=== PATIENT | male | born 1965 | race Caucasian/White ===

== ENCOUNTER 2017-04-01 11:00 | Inpatient (IN) | payer OTHER ==
--- NOTE | 2017-04-01 11:17 | PDOC ---
History of Present Illness - General Chief Complaint: Loss of Appetite Stated Complaint: APPETITE CHANGES, CONSTIPATION Time Seen by Provider: 04/01/17 11:04 - History of Present Illness Initial Comments: 04/01/17 11:17 51-year-old male with a history of mental retardation and no other medical history presents with 4 days of decreased appetite, abdominal distention. History is limited as patient is nonverbal. Patient's mom reports that she is concerned he's constipated as he has made frequent trips to the bathroom but has not had too many bowel movements. He denied pain to her. She has not noted any fevers, chills, nausea, vomiting. She does report he has had intermittent pickups for the last 4 days. She reports he has been less active and spending most of his day in bed which is unusual for him. She has not noted any urinary symptoms, rashes. PSH: Open cholecystectomy Social: No EtOH, tobacco, or illicit drugs Past History - Past Medical History Allergies/Adverse Reactions: Allergies Allergy/AdvReac Type Severity Reaction Status Date / Time No Known Allergies Allergy Verified 04/01/17 11:04 Home Medications: Ambulatory Orders Cholecalciferol (Vitamin D3) [Vitamin D3 -] 2,000 unit PO DAILY 04/01/17 Mv-Mn/FA/Coq10/Lycopene/Lutein [Theragran-M Premier 50+ Caplet] 1 each PO DAILY 04/01/17 Cardiac Disorders: Yes (MVP) Other medical history: FRAGILE X SYNDROME, ASTIGMATISM, SEBORRHEA, SKIN PICKING - Surgical History Cholecystectomy: Yes - Suicide/Smoking/Psychosocial Hx Smoking Status: No Smoking History: Never smoked Have you smoked in the past 12 months: No Number of Cigarettes Smoked Daily: 0 Information on smoking cessation initiated: No Hx Alcohol Use: No Drug/Substance Use Hx: No Review of Systems - Review of Systems Comments:: 04/01/17 11:20 GENERAL/CONSTITUTIONAL: No fever or chills. No weakness. decreased appetite HEAD, EYES, EARS, NOSE AND THROAT: No change in vision. No ear pain or discharge. No sore throat. GASTROINTESTINAL: No nausea, vomiting, +abd distention GENITOURINARY: No dysuria, frequency, or change in urination. CARDIOVASCULAR: No chest pain or shortness of breath. RESPIRATORY: No cough, wheezing, or hemoptysis. MUSCULOSKELETAL: No joint or muscle swelling or pain. No neck or back pain. SKIN: No rash NEUROLOGIC: No headache, vertigo, loss of consciousness, or change in strength/ sensation. ENDOCRINE: No increased thirst. No abnormal weight change. HEMATOLOGIC/LYMPHATIC: No anemia, easy bleeding, or history of blood clots. ALLERGIC/IMMUNOLOGIC: No hives or skin allergy. *Physical Exam - Vital Signs Last Vital Signs Temp Pulse Resp BP Pulse Ox 97.3 F L 93 H 18 145/96 97 04/01/17 11:00 04/01/17 11:00 04/01/17 11:00 04/01/17 11:00 04/01/17 11:00 - Physical Exam Comments: 04/01/17 11:20 GENERAL: Awake, alert, non verbal, in no acute distress. Malodorous. HEAD: No signs of trauma EYES: PERRLA, EOMI, sclera anicteric, conjunctiva clear ENT: Auricles normal inspection, hearing grossly normal, nares patent, oropharynx clear without exudates. Moist mucosa NECK: Normal ROM, supple, no lymphadenopathy, JVD, or masses LUNGS: Breath sounds equal, clear to auscultation bilaterally. No wheezes, and no crackles HEART: Regular rate and rhythm, normal S1 and S2, no murmurs, rubs or gallops ABDOMEN: +distention, grimaces when palpating periumbilical and lower abdomen, + non pulsatile mass palpated in periumbilical area. No rebound or guarding. No CVAT EXTREMITIES: Normal range of motion, no edema. No clubbing or cyanosis. No cords, erythema, or tenderness NEUROLOGICAL: Follows simple commands, cranial nerves intact, negative pronator drift, 5/5 strength in all 4 extremities, normal sensation to light touch in all 4 extremities, normal gait, normal reflexes and tone SKIN: Warm, Dry, normal turgor, no rashes or lesions noted. Heart Score/ECG Review #1 04/01/17 14:22 Twelve-lead EKG was performed and reviewed by me. Sinus rhythm, rate 82, normal axis. +PVCs. No ST elevations or T-wave inversions. ED Treatment Course - LABORATORY CBC & Chemistry Diagram: 04/01/17 10:30 04/01/17 11:00 - RADIOLOGY Radiology Studies Ordered: Category Date Time Status ABDOMEN & PELVIS CT WITH CONTR [CT] Stat CT Scan 04/01/17 11:15 Ordered Medical Decision Making - Medical Decision Making 04/01/17 11:22 51-year-old male with a history of open cholecystectomy presents with 4 days of abdominal distention decreased by mouth appetite and possible constipation. Other than mild hypertension vitals are within normal limits. Exam remarkable for grimacing when palpating the periumbilical area, abdominal distention and large nonpulsatile mass in the periumbilical area. Differential includes but is not limited to obstruction versus ileus versus constipation. Since history is limited, will also check troponin/EKG for ischemia, and UA for other infections causes -labs -UA -AXR -CTAP -reassess *DC/Admit/Observation/Transfer Diagnosis at time of Disposition: Renal failure, Retention of urine, Diverticulitis of intestine - Discharge Dispostion Condition at time of disposition: Stable Admit: Yes - Attestations Physician Attestion: 04/01/17 14:23 I, Dr. Stefany Grajeda MD, attest that this document has been prepared under my direction and personally reviewed by me in its entirety. I further attest, that it accurately reflects all work, treatment, procedures and medical decision -making performed by me.
[2017-04-01 11:37] LABS: URINE APPEARANCE Clear; URINE BACTERIA FEW /hpf (NEGATIVE); URINE BILIRUBIN Negative (NEGATIVE); URINE BLOOD Trace-lysed (NEGATIVE); URINE COLOR YELLOW; URINE GLUCOSE (UA) Trace (NEGATIVE); URINE KETONE Negative (NEGATIVE); URINE LEUK ESTERASE Negative (NEGATIVE); URINE NITRITE Negative (NEGATIVE); URINE PROTEIN Negative (NEGATIVE); URINE RBC 0-3 /hpf (0-3); URINE UROBILINOGEN 0.2 (0.2-1.0); URINE WBC 0-3 /hpf (3-5)
[2017-04-01 11:41] LABS: BASOPHIL 3.8 % (0-2.0); EOSINOPHIL 0.1 % (0-4.5); MCH 30.7 pg (25.7-33.7); MCHC 33.8 g/dl (32.0-35.9); NEUTROPHILS 78.9 % (42.8-82.8); PLATELET COUNT 219 K/MM3 (134-434); RDW 14.3 % (11.9-15.9); WHITE BLOOD COUNT 12.5 K/mm3 (4.0-10.8)
[2017-04-01 11:58] LABS: ALBUMIN 3.8 g/dl (3.5-5.0); ALK PHOS 167 U/L (32-92); ANION GAP 12 (8-16); BILIRUBIN,TOTAL 1.6 mg/dl (0.2-1.0); CALCIUM 8.9 mg/dl (8.4-10.2); CO2 21 mmol/L (22-28); CREATININE 6.3 mg/dl (0.6-1.3); GLUCOSE,RANDOM 120 mg/dl (74-106); MAGNESIUM 2.4 mg/dL (1.8-2.4); SGOT/AST 129 U/L (10-42); SGPT/ALT 163 U/L (10-40); TOT PROT 7.2 g/dl (6.4-8.3)
[2017-04-01] MEDS ORDERED: ONDANSETRON 4 MG/2 ML VIAL IVPUSH ONE (12:14)
[2017-04-01] MEDS ORDERED: ONDANSETRON 4 MG/2 ML VIAL ONE (12:14)
[2017-04-01] MEDS ORDERED: LEVOFLOXACIN 750 MG IVPB 150 ML IVPB ONE ×2 (13:49→14:08)
[2017-04-01] MEDS ORDERED: METRONIDAZOLE 500 MG PREMIXED 100 ML IVPB ONE ×2 (13:50→14:08)
[2017-04-01] MEDS ORDERED: SODIUM CHLORIDE 0.9% 500 ML INFUS.BAG IV ONE (14:11)
[2017-04-01 14:24] LABS: PH,URINE 5.5 (4.5-8); URINE APPEARANCE Clear; URINE BILIRUBIN Negative (NEGATIVE); URINE BLOOD 3+ (NEGATIVE); URINE COLOR YELLOW; URINE GLUCOSE (UA) Negative (NEGATIVE); URINE KETONE Negative (NEGATIVE); URINE LEUK ESTERASE 1+ (NEGATIVE); URINE NITRITE Negative (NEGATIVE); URINE PROTEIN 1+ (NEGATIVE); URINE UROBILINOGEN 0.2 (0.2-1.0)
[2017-04-01 14:27] LABS: URINE BACTERIA MANY /hpf (NEGATIVE); URINE RBC 30-50 /hpf (0-3)
[2017-04-01 14:28] LABS: URINE HYALINE CAST 0-3 /lpf
--- NOTE | 2017-04-01 14:56 | HP ---
CHIEF COMPLAINT: Loss of appetite PCP: [facility] [place] HISTORY OF PRESENT ILLNESS: This is a 51-year-old male with a history of Fragile X syndrome, mild MVP,non- verbal, highly functional, mild mental retardation, who was brought in by his mother complains of poor appetite for 4 days and abdominal distention. Patient' s mom reports that she is concerned that he's constipated as he has made frequent trips to the bathroom but has not had too many bowel movements. Pt was given Colace 200mg x1 with not much effect. Pt denies abdominal pain, N/V/D, cp , sob,palpitations, urinary symptoms, fever or chills. CT abdomen/ Pelvis revealed Mild bilateral renal hydronephrosis,, mild acute diverticulitis in the sigmoid colon without abscess, suspicious for colitis, appendicitis and enlarged prostate. ER course was notable for: (1) wbc 12.5 (2)Na 132 (3) 6.3 (4) Abnormal LFT's Recent Travel:No PAST MEDICAL HISTORY: Seborrhea, Mononucleosis Astigmatism chronic fungal infection of toes PAST SURGICAL HISTORY: Gb sx Social History: Smoking:No Alcohol:No Drugs: No Family History: father/ sister- DM Sister of complication from DM Allergies No Known Allergies Allergy (Verified 04/01/17 11:04) HOME MEDICATIONS: Home Medications Medication Instructions Recorded Cholecalciferol (Vitamin D3) 2,000 unit PO DAILY 04/01/17 [Vitamin D3 -] Mv-Mn/FA/Coq10/Lycopene/Lutein 1 each PO DAILY 04/01/17 [Theragran-M Premier 50+ Caplet] REVIEW OF SYSTEMS CONSTITUTIONAL: Absent: fever, chills, diaphoresis, generalized weakness, malaise, weight change + loss of appetite, HEENT: Absent: rhinorrhea, nasal congestion, throat pain, throat swelling, difficulty swallowing, mouth swelling, ear pain, eye pain, visual changes CARDIOVASCULAR: Absent: chest pain, syncope, palpitations, irregular heart rate, lightheadedness , peripheral edema RESPIRATORY: Absent: cough, shortness of breath, dyspnea with exertion, orthopnea, wheezing, stridor, hemoptysis GASTROINTESTINAL: Absent: abdominal pain, abdominal distension, nausea, vomiting, diarrhea, constipation, melena, hematochezia GENITOURINARY: Absent: dysuria, frequency, urgency, hesitancy, hematuria, flank pain, genital pain MUSCULOSKELETAL: Absent: myalgia, arthralgia, joint swelling, back pain, neck pain SKIN: Absent: rash, itching, pallor HEMATOLOGIC/IMMUNOLOGIC: Absent: easy bleeding, easy bruising, lymphadenopathy, frequent infections ENDOCRINE: Absent: unexplained weight gain, unexplained weight loss, heat intolerance, cold intolerance NEUROLOGIC: Non-verbal, highly functional Absent: headache, focal weakness or paresthesias, dizziness, unsteady gait, seizure, mental status changes, bladder or bowel incontinence PSYCHIATRIC: Absent: anxiety, depression, suicidal or homicidal ideation, hallucinations. PHYSICAL EXAMINATION Vital Signs - 24 hr 04/01/17 11:00 Temperature 97.3 F L Pulse Rate 93 H Respiratory 18 Rate Blood Pressure 145/96 O2 Sat by Pulse 97 Oximetry (%) GENERAL: Awake, alert, and fully oriented, in no acute distress. HEAD: Normal with no signs of trauma. EYES: Pupils equal, round and reactive to light, extraocular movements intact, sclera anicteric, conjunctiva clear. No lid lag. EARS, NOSE, THROAT: Ears normal, nares patent, oropharynx clear without exudates. Moist mucous membranes. NECK: Normal range of motion, supple without lymphadenopathy, JVD, or masses. LUNGS: Breath sounds equal, clear to auscultation bilaterally. No wheezes, and no crackles. No accessory muscle use. HEART: Regular rate and rhythm, normal S1 and S2 without murmur, rub or gallop. ABDOMEN: Soft, nontender, not distended, normoactive bowel sounds, no guarding, no rebound, no masses. No hepatomegaly or splenomegaly. MUSCULOSKELETAL: Normal range of motion at all joints. No bony deformities or tenderness. No CVA tenderness. UPPER EXTREMITIES: 2+ pulses, warm, well-perfused. No cyanosis. No clubbing. No peripheral edema. LOWER EXTREMITIES: 2+ pulses, warm, well-perfused. No calf tenderness. No peripheral edema. NEUROLOGICAL: Cranial nerves II-XII intact. Normal speech. Normal gait. PSYCHIATRIC: Cooperative. Good eye contact. Appropriate mood and affect.Non- verbal SKIN: Warm, dry, normal turgor, no rashes or lesions noted, normal capillary refill. - Mejia drain yellow/timur urine Laboratory Results - last 24 hr 04/01/17 04/01/17 04/01/17 10:30 10:30 11:00 WBC 12.5 H RBC 4.95 Hgb 15.2 Hct 45.0 MCV 91.0 MCH 30.7 MCHC 33.8 RDW 14.3 Plt Count 219 MPV 9.0 Neutrophils % 78.9 Lymphocytes % 8.4 Monocytes % 8.8 Eosinophils % 0.1 Basophils % 3.8 H Sodium 132 L Potassium 4.6 Chloride 99 Carbon Dioxide 21 L Anion Gap 12 BUN 74 H Creatinine 6.3 H Creat Clearance w eGFR 9.34 Random Glucose 120 H Lactic Acid Cancelled Calcium 8.9 Magnesium 2.4 Total Bilirubin 1.6 H AST 129 H ALT 163 H Alkaline Phosphatase 167 H Troponin I Total Protein 7.2 Albumin 3.8 Lipase 29 Urine Color Urine Appearance Urine pH Ur Specific [place] Urine Protein Urine Glucose (UA) Urine Ketones Urine Blood Urine Nitrite Urine Bilirubin Urine Urobilinogen Ur Leukocyte Esterase Urine RBC Urine WBC Ur Epithelial Cells Urine Bacteria Hyaline Casts RBC Casts 04/01/17 04/01/17 04/01/17 11:00 11:20 11:58 WBC RBC Hgb Hct MCV MCH MCHC RDW Plt Count MPV Neutrophils % Lymphocytes % Monocytes % Eosinophils % Basophils % Sodium Potassium Chloride Carbon Dioxide Anion Gap BUN Creatinine Creat Clearance w eGFR Random Glucose Lactic Acid 1.1 Calcium Magnesium Total Bilirubin AST ALT Alkaline Phosphatase Troponin I 0.01 Total Protein Albumin Lipase Urine Color Yellow Urine Appearance Clear Urine pH 6.0 Ur Specific [place] 1.015 Urine Protein Negative Urine Glucose (UA) Trace Urine Ketones Negative Urine Blood Trace-lysed H Urine Nitrite Negative Urine Bilirubin Negative Urine Urobilinogen 0.2 Ur Leukocyte Esterase Negative Urine RBC 0-3 Urine WBC 0-3 /hpf Ur Epithelial Cells Few Urine Bacteria Few Hyaline Casts RBC Casts 04/01/17 14:20 WBC RBC Hgb Hct MCV MCH MCHC RDW Plt Count MPV Neutrophils % Lymphocytes % Monocytes % Eosinophils % Basophils % Sodium Potassium Chloride Carbon Dioxide Anion Gap BUN Creatinine Creat Clearance w eGFR Random Glucose Lactic Acid Calcium Magnesium Total Bilirubin AST ALT Alkaline Phosphatase Troponin I Total Protein Albumin Lipase Urine Color Yellow Urine Appearance Clear Urine pH 5.5 Ur Specific [place] 1.015 Urine Protein 1+ H Urine Glucose (UA) Negative Urine Ketones Negative Urine Blood 3+ H Urine Nitrite Negative Urine Bilirubin Negative Urine Urobilinogen 0.2 Ur Leukocyte Esterase 1+ H Urine RBC 30-50 Urine WBC 5-10 Ur Epithelial Cells Moderate Urine Bacteria Many Hyaline Casts 0-3 RBC Casts 3-5 Urine culture pending CXR : No acute pathology Abdominal X'ray:: No obstruction EKG: SR with PAC's ASSESSMENT/PLAN: This is a 51-year-old male with a history of Fragile X syndrome, mild MVP,non- verbal, mild mental retardation, who was brought in by his mother complains of decreased appetite and abdominal distention. *Acute diverticulitis/ ? appendicitis - pt receive 1 dose of Flagyl and Levaquin, which will continue ( renally dosed) - Sx consulted Dr. Christina - afebrile with mild leukocytosis - normal lactic acid level - will keep pt NPO * Acute renal failure/urinary retention- no hx of renal disease - normal bun/ cre in 2016 - bun 74, cre 6.3 - renal consulted - Mejia placed in ER, obtained 1300cc of urine - will cont on IVF - Renal US - CT abdomen revealed mild hydronephrosis, enlarged prostate - will check PSA level * Abnromal LFTs - asymptomatic - Total Bili 1.6, will check direct bilirubin level - will Rpt LFt's, Hep profile - consider abdominal US if LFt's remains elevated * Hyponatremia- likely due to poor PO intake - pt received IVF in ER, which will continue DVT prophylaxis : Heparin SQ Code status : full code Problem List - Problem (1) Diverticulitis Code(s): K57.92 - DVTRCLI OF INTEST, PART UNSP, W/O PERF OR ABSCESS W/O BLEED (2) Renal failure Code(s): N19 - UNSPECIFIED KIDNEY FAILURE (3) Urinary retention Code(s): R33.9 - RETENTION OF URINE, UNSPECIFIED Visit type - Emergency Visit Emergency Visit: Yes Care time: The patient presented to the Emergency Department on the above date and was hospitalized for further evaluation of their emergent condition. - New Patient This patient is new to me today: Yes Date on this admission: 04/01/17 - Critical Care Critical Care patient: No
[2017-04-01] MEDS ORDERED: DEXTROSE 5%-NORMAL SALINE 1,000 ML IV SCH (15:45)
[2017-04-01 16:54] VITALS: BMI 26.9
--- NOTE | 2017-04-01 17:47 | CONSULT ---
Consult Consult Specialty:: General Surgery Referred by:: Stefany Grajeda Reason for Consultation:: mild diverticulitis - History of Present Illness Chief Complaint: abdominal distention, pain, anorexia, nocturia with dribbling but poor output History of Present Illness: 51yo M with fragile X syndrome, mild MR, highly functional per chart, mild MVP, s/p cholecystectomy many years ago, was brought to ER today with abdominal distention, pain and anorexia - per mother, he has not had much to eat since he did not want dinner night - and suspicion of constipation. Per mother, he had been getting up to go to the bathroom at 5am frequently for about a year , but in the last few days, she noticed he was going to the bathroom a lot but thought he was not having many BMs. The patient indicates his last BM was this morning. He does nod to being asked whether he was trying to urinate but having some trouble, and getting out mostly dribbles. When asked how long he has had abdominal discomfort, he indicates 3-4 weeks, most of March, but not back into February. He has never had a colonoscopy. He usually goes to a clinic at [facility] for medical care, but mother is shopping for a primary care doctor for him. He is generally healthy otherwise. He denies F/C, N/V, D/C, headache, dizziness, CP/SOB, back or joint pain, smoking, alcohol or drugs. In the ER, labs were significant for wbc 12.5, BUN/Cr 74/6.3, Na 132, K 4.6, Cl 99, lactate 1.1, mildly elevated LFTs. Initial UA showed few epi's, 0-3 RBC/ WBC. CT showed mild bilateral hydronephrosis L>R and hydroureter without obstructing stones, bilateral perinephric stranding, bladder massively distended to level of umbilicus [id number], diverticulosis with mild sigmoid wall thickening suggestive of mild diverticulitis, also mild thickening of proximal ascending colon with some stranding suggestive of possible colitis, appendix not clearly seen, minimal fluid in RLQ and an enlarged prostate 6 x 5.8cm. Mejia was placed with 1600ml out. Repeat UA from Mejia (outlet not port) was contaminated with moderate epi's. He was reportedly more comfortable after catheter placement, spoke to ER physician, and indicates no more pain. He smiles and makes eye contact, but will not speak aloud to me, though he did mouth a few answers to questions, nods and shakes his head. ER spoke to Urology, Dr. Groves, who will see the patient in the hospital. Mejia has 250ml light yellow/clear/slightly cloudy out in meter bag at this time. Surgery was consulted by ER because of CT mention of diverticulitis and possible colitis. - History Source History Provided By: Patient, Family Member (mother), Medical Record Limitations to Obtaining History: Clinical Condition (nonverbal patient with yes /no responses and occasional mouthing of answers) - Past Medical History ANALYSIS EVALUATOR: Yes: Other (Fragile X/mild mental retardation, highly functional but mostly nonverbal) Cardio/Vascular: Yes: Mitral Insufficiency (mild MVP) Gastrointestinal: Yes: Constipation Renal/: No: Renal Inusuff, Hematuria, Renal Calculi - Past Surgical History Past Surgical History: Yes: Cholecystectomy (open, many years ago). No: Colonoscopy - Alcohol/Substance Use Hx Alcohol Use: No History of Substance Use: reports: None - Smoking History Smoking history: Never smoked Have you smoked in the past 12 months: No Aproximately how many cigarettes per day: 0 - Social History Usual Living Arrangement: With Parent Home Medications - Allergies Allergies/Adverse Reactions: Allergies Allergy/AdvReac Type Severity Reaction Status Date / Time No Known Allergies Allergy Verified 04/01/17 11:04 - Home Medications Home Medications: Ambulatory Orders Cholecalciferol (Vitamin D3) [Vitamin D3 -] 2,000 unit PO DAILY 04/01/17 Mv-Mn/FA/Coq10/Lycopene/Lutein [Theragran-M Premier 50+ Caplet] 1 each PO DAILY 04/01/17 Family Disease History - Family Disease History Family Disease History: Diabetes: Sister ( from DM complications) Review of Systems Unable to obtain ROS, reason: limited only - Review of Systems Constitutional: denies: Chills, Fever Cardiovascular: denies: Chest Pain, Palpitations Respiratory: denies: Cough, SOB Gastrointestinal: reports: Abdominal Pain (with hpi), Bloating (distention with hpi), Constipation (per mother, not per pt). denies: Diarrhea, Nausea, Vomiting Genitourinary: reports: Frequency (per mother), Other (nocturia, some dribbling , trouble going). denies: Burning, Dysuria Musculoskeletal: denies: Back Pain, Joint Pain Integumentary: denies: Change in Color, Rash Neurological: reports: Pre-Existing Deficit (mostly nonverbal). denies: Dizziness, Headache Physical Exam Vital Signs: Vital Signs Temperature 97.5 F L 04/01/17 16:05 Pulse Rate 87 04/01/17 16:00 Respiratory Rate 16 04/01/17 16:05 Blood Pressure 110/70 04/01/17 16:00 O2 Sat by Pulse Oximetry (%) 98 04/01/17 16:05 Constitutional: Yes: Well Nourished, No Distress, Calm Eyes: Yes: Conjunctiva Clear, EOM Intact. No: Sclera Icterus HENT: Yes: Atraumatic, Normocephalic Neck: Yes: Supple, Trachea Midline Cardiovascular: Yes: Pulse Irregular (regular with occasional premature beats). No: Murmur (not appreciated) Respiratory: Yes: Regular, CTA Bilaterally Gastrointestinal: Yes: Normal Bowel Sounds, Soft, Distention (mild). No: Palpable Mass, Tenderness ...Rectal Exam: Yes: Deferred Renal/: Yes: Mejia Present (light yellow urine). No: CVA Tenderness - Left, CVA Tenderness - Right, Hematuria Musculoskeletal: No: Joint Swelling, Muscle Pain Extremities: No: Calf Tenderness, Cool, Cyanosis Edema: No Peripheral Pulses WNL: Yes Integumentary: No: Jaundice, Rash Neurological: Yes: Alert, Oriented (appears oriented - responds to simple questions only, mostly nonverbal) Labs: CBCD WBC 12.5 K/mm3 (4.0-10.8) H 04/01/17 10:30 RBC 4.95 M/mm3 (4.00-5.60) 04/01/17 10:30 Hgb 15.2 GM/dl (11.7-16.9) 04/01/17 10:30 Hct 45.0 % (35.4-49) 04/01/17 10:30 MCV 91.0 fl (80-96) 04/01/17 10:30 MCHC 33.8 g/dl (32.0-35.9) 04/01/17 10:30 RDW 14.3 % (11.9-15.9) 04/01/17 10:30 Plt Count 219 K/MM3 (134-434) 04/01/17 10:30 MPV 9.0 fl (7.5-11.1) 04/01/17 10:30 CMP Sodium 132 mmol/L (136-145) L 04/01/17 11:00 Potassium 4.6 mmol/L (3.5-5.1) 04/01/17 11:00 Chloride 99 mmol/L (98-107) 04/01/17 11:00 Carbon Dioxide 21 mmol/L (22-28) L 04/01/17 11:00 Anion Gap 12 (8-16) 04/01/17 11:00 BUN 74 mg/dl (7-18) H 04/01/17 11:00 Creatinine 6.3 mg/dl (0.6-1.3) H 04/01/17 11:00 Creat Clearance w eGFR 9.34 (>60) 04/01/17 11:00 Calcium 8.9 mg/dl (8.4-10.2) 04/01/17 11:00 Total Bilirubin 1.6 mg/dl (0.2-1.0) H 04/01/17 11:00 AST 129 U/L (10-42) H 04/01/17 11:00 ALT 163 U/L (10-40) H 04/01/17 11:00 Alkaline Phosphatase 167 U/L (32-92) H 04/01/17 11:00 Total Protein 7.2 g/dl (6.4-8.3) 04/01/17 11:00 Albumin 3.8 g/dl (3.5-5.0) 04/01/17 11:00 Urine Test Results Urine Color Yellow 04/01/17 14:20 Urine Appearance Clear 04/01/17 14:20 Urine pH 5.5 (4.5-8) 04/01/17 14:20 Ur Specific [place] 1.015 (1.005-1.025) 04/01/17 14:20 Urine Protein 1+ (NEGATIVE) H 04/01/17 14:20 Urine Glucose (UA) Negative (NEGATIVE) 04/01/17 14:20 Urine Ketones Negative (NEGATIVE) 04/01/17 14:20 Urine Blood 3+ (NEGATIVE) H 04/01/17 14:20 Urine Nitrite Negative (NEGATIVE) 04/01/17 14:20 Urine Bilirubin Negative (NEGATIVE) 04/01/17 14:20 Ur Leukocyte Esterase 1+ (NEGATIVE) H 04/01/17 14:20 Urine RBC 30-50 /hpf (0-3) 04/01/17 14:20 Urine WBC 5-10 (3-5) 04/01/17 14:20 Ur Epithelial Cells Moderate /HPF 04/01/17 14:20 Urine Bacteria Many /hpf (NEGATIVE) 04/01/17 14:20 from outlet on Mejia - contaminated initial sample prior to Mejia (likely overflow) showed trace glucose, trace blood (lysed), 0-3 rbc, 0-3 wbc, few epi's, few bact Imaging - Results X-ray: Report Reviewed, Image Reviewed Cat Scan: Report Reviewed (see hpi), Image Reviewed Problem List - Problems (1) Obstructive uropathy Assessment/Plan: admitted to medicine Mejia in place monitor UOP and I/O's strictly, hourly x 4 hours initially NPO/IVF resuscitation would repeat UA and culture from sterile Mejia port on IV antibiotics Levo/Flagyl consult Urology and Nephrology anticipate Mejia for at least several days given degree of bladder distention and likely atony PSA to be checked Code(s): N13.9 - OBSTRUCTIVE AND REFLUX UROPATHY, UNSPECIFIED (2) Enlarged prostate with urinary obstruction Assessment/Plan: checking PSA Mejia in place see above Urology consult Code(s): N40.1 - BENIGN PROSTATIC HYPERPLASIA WITH LOWER URINARY TRACT SYMP N13.8 - OTHER OBSTRUCTIVE AND REFLUX UROPATHY (3) Acute renal impairment Assessment/Plan: secondary to obstructive uropathy IV fluids trend labs nephrology consult adjust med/abx dosing as renal function improves Code(s): N28.9 - DISORDER OF KIDNEY AND URETER, UNSPECIFIED (4) Diverticulitis large intestine w/o perforation or abscess w/o bleeding Assessment/Plan: mild sigmoid findings - unlikely to be primary process Levo/Flagyl would cover in any case NPO for now currently without abdominal pain or tenderness after Mejia decompression Code(s): K57.32 - DVTRCLI OF LG INT W/O PERFORATION OR ABSCESS W/O BLEEDING (5) Fragile X syndrome in male Code(s): Q87.89 - OTH CONGENITAL MALFORMATION SYNDROMES, NEC (6) Mental retardation associated with Fragile X syndrome Code(s): F79 - UNSPECIFIED INTELLECTUAL DISABILITIES Q99.2 - FRAGILE X CHROMOSOME
[2017-04-01 20:55] LABS: PH,URINE 5.5 (4.5-8); URINE APPEARANCE SL CLOUDY; URINE BILIRUBIN Negative (NEGATIVE); URINE BLOOD 3+ (NEGATIVE); URINE COLOR YELLOW; URINE GLUCOSE (UA) Negative (NEGATIVE); URINE KETONE Trace (NEGATIVE); URINE LEUK ESTERASE 1+ (NEGATIVE); URINE NITRITE Negative (NEGATIVE); URINE PROTEIN 1+ (NEGATIVE); URINE UROBILINOGEN 0.2 (0.2-1.0)
[2017-04-01 20:58] LABS: ANION GAP 6 (8-16); CALCIUM 8.5 mg/dl (8.4-10.2); CO2 24 mmol/L (22-28); CREATININE 3.1 mg/dl (0.6-1.3); GLUCOSE,RANDOM 114 mg/dl (74-106)
[2017-04-01 20:59] LABS: URINE BACTERIA FEW /hpf (NEGATIVE); URINE RBC 60-100 /hpf (0-3)
[2017-04-01] MEDS: METRONIDAZOLE 500 MG PREMIXED 100 ML IVPB SCH (21:29)
[2017-04-01] MEDS: HEPARIN NA (PORCINE) 5,000 UNITS/ML 1ML VIAL SQ SCH (21:30)
[2017-04-02] MEDS: METRONIDAZOLE 500 MG PREMIXED 100 ML IVPB SCH ×3 (01:57→18:04)
[2017-04-02] MEDS: HEPARIN NA (PORCINE) 5,000 UNITS/ML 1ML VIAL SQ SCH ×3 (05:46→21:40)
[2017-04-02 08:19] LABS: BASOPHIL 0.3 % (0-2.0); EOSINOPHIL 0.2 % (0-4.5); MCH 30.4 pg (25.7-33.7); MCHC 32.8 g/dl (32.0-35.9); MEAN CELL VOLUME 92.6 fl (80-96); MEAN PLT VOLUME 8.5 fl (7.5-11.1); NEUTROPHILS 71.5 % (42.8-82.8); PLATELET COUNT 194 K/MM3 (134-434); RDW 13.9 % (11.9-15.9); WHITE BLOOD COUNT 6.9 K/mm3 (4.0-10.8)
[2017-04-02 08:45] LABS: ALBUMIN 2.9 g/dl (3.5-5.0); ALK PHOS 148 U/L (32-92); ANION GAP 7 (8-16); BILIRUBIN,DIRECT 0.3 mg/dl (0.0-0.2); BILIRUBIN,TOTAL 1.1 mg/dl (0.2-1.0); CALCIUM 8.5 mg/dl (8.4-10.2); CO2 26 mmol/L (22-28); CREATININE 1.5 mg/dl (0.6-1.3); GLUCOSE,RANDOM 108 mg/dl (74-106); SGOT/AST 64 U/L (10-42); SGPT/ALT 129 U/L (10-40); TOT PROT 5.6 g/dl (6.4-8.3)
--- NOTE | 2017-04-02 09:14 | PN ---
Physical Exam: SUBJECTIVE: Patient seen and examined, smiles and nods and whispers words, appears comfortable during exam. OBJECTIVE: Patient is a 51 y/o male with a past medical history of fragile x syndrome, mild MR. Patient was admitted from the emergency department for OPAL and obstructive uropathy. Vital Signs Period Temp Pulse Resp BP Sys/Suarez Pulse Ox Last 24 Hr 97.5 F-98.1 F 83-90 16-18 109-118/66-71 98 Intake & Output 03/30/17 03/31/17 04/01/17 04/02/17 23:59 23:59 23:59 23:59 Intake Total 1200 Output Total 3095 1398 Balance -1895 -1398 Weight 85.292 kg 85.292 kg GENERAL: The patient is awake, alert, and fully oriented, in no acute distress. HEAD: Normal with no signs of trauma. EYES: PERRL, extraocular movements intact, sclera anicteric, conjunctiva clear. No ptosis. ENT: Ears normal, nares patent, oropharynx clear without exudates, moist mucous membranes. NECK: Trachea midline, full range of motion, supple. LUNGS: Breath sounds equal, clear to auscultation bilaterally, no wheezes, no crackles, no accessory muscle use. HEART: Regular rate and rhythm, S1, S2 without murmur, rub or gallop. ABDOMEN: Soft, nontender, nondistended, normoactive bowel sounds, no guarding, no rebound, no hepatosplenomegaly, no masses. : clear yellow urine EXTREMITIES: 2+ pulses, warm, well-perfused, no edema. NEUROLOGICAL: Cranial nerves II through XII grossly intact. non-verbal, gait not observed. PSYCH: Normal mood, normal affect. SKIN: Warm, dry, normal turgor, no rashes or lesions noted Laboratory Results - last 24 hr 04/01/17 04/01/17 04/01/17 18:50 18:50 18:50 WBC RBC Hgb Hct MCV MCH MCHC RDW Plt Count MPV Neutrophils % Lymphocytes % Monocytes % Eosinophils % Basophils % Sodium Potassium Chloride Carbon Dioxide Anion Gap BUN Creatinine Creat Clearance w eGFR Random Glucose Calcium Total Bilirubin Direct Bilirubin AST ALT Alkaline Phosphatase Total Protein Albumin Urine Color Yellow Urine Appearance Sl cloudy Urine pH 5.5 Ur Specific [place] 1.015 Urine Protein 1+ H Urine Glucose (UA) Negative Urine Ketones Trace Urine Blood 3+ H Urine Nitrite Negative Urine Bilirubin Negative Urine Urobilinogen 0.2 Ur Leukocyte Esterase 1+ H Urine RBC 60-100 Urine WBC 5-10 Ur Epithelial Cells Few Amorphous Urates Few Urine Bacteria Few Ur Random Sodium 46 Ur Random Potassium 36.3 Ur Random Chloride 52 Urine Creatinine 106.0 04/01/17 04/02/17 04/02/17 20:16 07:00 07:00 WBC 6.9 D RBC 4.25 Hgb 12.9 D Hct 39.3 MCV 92.6 MCH 30.4 MCHC 32.8 RDW 13.9 Plt Count 194 MPV 8.5 Neutrophils % 71.5 Lymphocytes % 16.2 D Monocytes % 11.8 H Eosinophils % 0.2 D Basophils % 0.3 Sodium 137 142 Potassium 3.6 D 3.6 Chloride 107 109 H Carbon Dioxide 24 26 Anion Gap 6 L 7 L BUN 53 H D 36 H D Creatinine 3.1 H D 1.5 H D Creat Clearance w eGFR 48.95 Random Glucose 114 H 108 H Calcium 8.5 8.5 Total Bilirubin 1.1 H D Direct Bilirubin 0.3 H AST 64 H D ALT 129 H D Alkaline Phosphatase 148 H Total Protein 5.6 L D Albumin 2.9 L D Urine Color Urine Appearance Urine pH Ur Specific [place] Urine Protein Urine Glucose (UA) Urine Ketones Urine Blood Urine Nitrite Urine Bilirubin Urine Urobilinogen Ur Leukocyte Esterase Urine RBC Urine WBC Ur Epithelial Cells Amorphous Urates Urine Bacteria Ur Random Sodium Ur Random Potassium Ur Random Chloride Urine Creatinine Active Medications Generic Name Dose Route Start Last Admin Trade Name Freq PRN Reason Stop Dose Admin Heparin Sodium (Porcine) 5,000 unit 04/01/17 22:00 04/02/17 05:46 Heparin - SQ 5,000 unit TID ANDI Administration Metronidazole 100 mls @ 100 mls/hr 04/01/17 22:00 04/02/17 01:57 Flagyl 500mg Premixed Ivpb - IVPB 100 mls/hr Q8H-IV ANDI Administration Levofloxacin 50 mls @ 50 mls/hr 04/03/17 10:00 Levaquin 250 Mg Premixed Ivpb - IVPB Q2D@1000 ANDI Dextrose/Sodium Chloride 1,000 mls @ 75 mls/hr 04/01/17 15:45 04/01/17 17:00 D5-Ns - IV 75 mls/hr ASDIR ANDI Administration Microbiology 04/01/17 14:20 Urine - Urine Clean Catch Urine Culture - Final NO GROWTH OBTAINED 04/01/17 11:20 Urine - Urine Clean Catch Urine Culture - Final NO GROWTH OBTAINED IMAGING ct of abd/pelvis: mild acute diverticulitis, mild bilateral hydronephrosis chest xray: no acute pathology ASSESSMENT/PLAN: 1) GI Acute diverticulitis - continue flagyl and levaquin-->levaquin adjusted to 500mg qd due to improvement of renal function - no leukocytosis, pt is afebrile - start regular diet - surgery, Dr Christina consulted and following transanimitis - benign abdominal exam, lft's trending downward 2) urology/nephrology acute renal failure secondary to obstructive uropathy - creatine 1.5 after collins insertion, significant decrease from admisison - ultrasound of abd/pelvis, no signs of hydronephrosis or stones - follow up PSA - start flomax - case discussed with urologist, Dr Groves, aggrees with plan, advises to d/ c collins at 0600 tommorow and start voiding trial - nephrology consulted and following f/e/n - regular diet - hyponatremia secondary to hypovolemia, resolved after IV hydration - change IVF to d51/2ns with 20meqkci @ 75ml/hr ppx - heparin - zantac - oob - pt dispo: requires inpatient admission Code status : full code Visit type - Emergency Visit Emergency Visit: Yes ED Registration Date: 04/01/17 Care time: The patient presented to the Emergency Department on the above date and was hospitalized for further evaluation of their emergent condition. - New Patient This patient is new to me today: Yes Date on this admission: 04/02/17 - Critical Care Critical Care patient: No - Discharge Referral Referred to [facility] Med P.C.: No
--- NOTE | 2017-04-02 09:48 | CON.NEP ---
Consult Consult Specialty:: Nephrology Referred by:: CARLA Luu Reason for Consultation:: OPAL - History of Present Illness Chief Complaint: Abd distension History of Present Illness: This is a 51 year old gentleman with PMhx of fragile X syndrome, mild MR, highly functional per chart, mild MVP who presented with complaints of Abd distension and decreased BM and found to have OPAL in setting of obstructive uropathy at the level of the bladder. Pt is a poor historian due to his clinical condition. Collins placed initially with 1600cc output. Cr improved from 6 to 1.5. Pt is on IVF. Currently also on Abx for suspected UTI. - History Source History Provided By: Patient, Medical Record Limitations to Obtaining History: Clinical Condition - Past Medical History FRUIT TRIMMER: Yes: Other (Fragile X/mild mental retardation, highly functional but mostly nonverbal) Cardio/Vascular: Yes: Mitral Insufficiency (mild MVP) Gastrointestinal: Yes: Constipation Renal/: No: Renal Inusuff, Hematuria, Renal Calculi - Past Surgical History Past Surgical History: Yes: Cholecystectomy (open, many years ago). No: Colonoscopy - Alcohol/Substance Use Hx Alcohol Use: No History of Substance Use: reports: None - Smoking History Smoking history: Never smoked Have you smoked in the past 12 months: No Aproximately how many cigarettes per day: 0 - Social History Usual Living Arrangement: With Parent Home Medications - Allergies Allergies/Adverse Reactions: Allergies Allergy/AdvReac Type Severity Reaction Status Date / Time No Known Allergies Allergy Verified 04/01/17 11:04 - Home Medications Home Medications: Ambulatory Orders Cholecalciferol (Vitamin D3) [Vitamin D3 -] 2,000 unit PO DAILY 04/01/17 Mv-Mn/FA/Coq10/Lycopene/Lutein [Theragran-M Premier 50+ Caplet] 1 each PO DAILY 04/01/17 Family Disease History - Family Disease History Family Disease History: Diabetes: Sister ( from DM complications) Review of Systems - Review of Systems Constitutional: reports: No Symptoms Eyes: reports: No Symptoms HENT: reports: No Symptoms Neck: reports: No Symptoms Cardiovascular: reports: No Symptoms Respiratory: reports: No Symptoms Gastrointestinal: reports: No Symptoms Genitourinary: reports: No Symptoms Musculoskeletal: reports: No Symptoms Integumentary: reports: No Symptoms Neurological: reports: No Symptoms Nephrology Consult - Height Height: 5 ft 10 in - Weight Weight: 188 lb 0.6 oz - BMI Body Mass Index (BMI): 26.9 - Lab Results CBC,BMP: CBC, BMP 04/02/17 07:00 04/02/17 07:00 Anion Gap: Anion Gap Anion Gap 7 (8-16) L 04/02/17 07:00 - Imaging Chest X-ray: Report Reviewed Cat Scan: Report Reviewed - Physical Examination Vital Signs: Vital Signs Temperature 98.1 F 04/02/17 05:41 Pulse Rate 83 04/02/17 05:41 Respiratory Rate 18 04/02/17 05:41 Blood Pressure 118/71 04/02/17 05:41 O2 Sat by Pulse Oximetry (%) 98 04/01/17 21:00 Constitutional: Yes: Well Nourished, No Distress, Calm Eyes: Yes: Conjunctiva Clear HENT: Yes: Atraumatic, Normocephalic Neck: Yes: Supple Cardiovascular: Yes: Regular Rate and Rhythm, S1, S2. No: JVD, Murmur, Rub Respiratory: Yes: Regular, CTA Bilaterally. No: Rales, Rhonchi, Wheezes Gastrointestinal: Yes: Normal Bowel Sounds, Soft. No: Ascites, Tenderness Renal/: Yes: Collins Present. No: Anuria, CVA Tenderness - Left, CVA Tenderness - Right Edema: No Neurological: Yes: Alert Problem List - Problems (1) Acute renal impairment Code(s): N28.9 - DISORDER OF KIDNEY AND URETER, UNSPECIFIED (2) Fragile X syndrome in male Code(s): Q87.89 - OTH CONGENITAL MALFORMATION SYNDROMES, NEC (3) Mental retardation associated with Fragile X syndrome Code(s): F79 - UNSPECIFIED INTELLECTUAL DISABILITIES Q99.2 - FRAGILE X CHROMOSOME (4) Obstructive uropathy Code(s): N13.9 - OBSTRUCTIVE AND REFLUX UROPATHY, UNSPECIFIED (5) Urinary retention Code(s): R33.9 - RETENTION OF URINE, UNSPECIFIED (6) BPH (benign prostatic hyperplasia) Code(s): N40.0 - BENIGN PROSTATIC HYPERPLASIA WITHOUT LOWER URINRY TRACT SYMP Assessment/Plan 51 year old gentleman with PMhx of fragile X syndrome, mild MR, highly functional per chart, mild MVP who presented with complaints of Abd distension and decreased BM and found to have OPAL in setting of obstructive uropathy #Acute Kidney injury in the setting of obstructive uropathy with an enlarged prostate Renal function improving s/p collins placement maintain collins pending urology evaluation start flomax 0.4mg Daily Change IVF to 1/2 NS at 83cc per hour Trend BUN/Cr and electrolytes daily avoid NATA/ARB/NSAIDs at the present time #UTI/Pylonephritis in the setting of obstructive uropathy on Levaquin Q48hr may need to increase frequency as renal function is improving f/u cultures Thank you Will follow Og Cedeno DO
[2017-04-02] MEDS ORDERED: D5-1/2NS+20 MEQ KCL - 1,000 ML IV SCH (10:00)
[2017-04-02] MEDS: TAMSULOSIN HCL 0.4 MG CAP.ER.24H (FP) PO SCH (10:09)
--- NOTE | 2017-04-02 10:37 | PN ---
Progress Note, Physician Chief Complaint: abdominal distention and pain History of Present Illness: Pt seen and examined in bed with SECURITIES TELLER Stanley Murdock. Nonverbal but answers with nods/ shakes and some mouthing of words. Smiling, indicates no pain. No BM yet. Somewhat hungry. Mejia with 3100 ml out yesterday, 1400 overnight, 350+ in bag now, light yellow. Nephrology consult noted. - Current Medication List Current Medications: Active Medications Heparin Sodium (Porcine) (Heparin -) 5,000 unit SQ TID [facility] Last Admin: 04/02/17 05:46 Dose: 5,000 unit Metronidazole (Flagyl 500mg Premixed Ivpb -) 100 mls @ 100 mls/hr IVPB Q8H-IV [facility] Last Admin: 04/02/17 10:09 Dose: 100 mls/hr Levofloxacin (Levaquin 250 Mg Premixed Ivpb -) 50 mls @ 50 mls/hr IVPB Q2D@ 1000 ANDI Potassium Chloride/Dextrose/Sod Cl (D5-1/2ns+20 Meq Kcl -) 1,000 mls @ 83 mls/ hr IV ASDIR [facility] Last Admin: 04/02/17 10:11 Dose: 83 mls/hr Tamsulosin HCl (Flomax -) 0.4 mg PO DAILY@0830 [facility] Last Admin: 04/02/17 10:09 Dose: 0.4 mg - Objective Vital Signs: Vital Signs Temperature 98.1 F 04/02/17 10:08 Pulse Rate 83 04/02/17 10:08 Respiratory Rate 18 04/02/17 10:08 Blood Pressure 125/69 04/02/17 10:08 O2 Sat by Pulse Oximetry (%) 98 04/01/17 21:00 Vital Signs Period Temp Pulse Resp BP Sys/Suarez Pulse Ox Last 24 Hr 97.3 F-98.1 F 83-93 16-18 109-145/66-96 97-98 Constitutional: Yes: Well Nourished, No Distress, Calm Eyes: Yes: Conjunctiva Clear, EOM Intact. No: Sclera Icterus HENT: Yes: Atraumatic, Normocephalic Gastrointestinal: Yes: Soft. No: Distention (normal size per patient), Tenderness Genitourinary: Yes: Mejia Present, Polyuria. No: Bladder Distention, Hematuria Extremities: No: Cool, Cyanosis Integumentary: No: Jaundice, Rash Neurological: Yes: Alert, Oriented (appears so, nonverbal but responsive) Labs: CBC, BMP 04/02/17 07:00 04/02/17 07:00 CMP Sodium 142 mmol/L (136-145) 04/02/17 07:00 Potassium 3.6 mmol/L (3.5-5.1) 04/02/17 07:00 Chloride 109 mmol/L (98-107) H 04/02/17 07:00 Carbon Dioxide 26 mmol/L (22-28) 04/02/17 07:00 Anion Gap 7 (8-16) L 04/02/17 07:00 BUN 36 mg/dl (7-18) H D 04/02/17 07:00 Creatinine 1.5 mg/dl (0.6-1.3) H D 04/02/17 07:00 Creat Clearance w eGFR 48.95 (>60) 04/02/17 07:00 Random Glucose 108 mg/dl (74-106) H 04/02/17 07:00 Lactic Acid 1.1 mmol/L (0.4-2.0) 04/01/17 11:58 Calcium 8.5 mg/dl (8.4-10.2) 04/02/17 07:00 Magnesium 2.4 mg/dL (1.8-2.4) 04/01/17 11:00 Total Bilirubin 1.1 mg/dl (0.2-1.0) H D 04/02/17 07:00 Direct Bilirubin 0.3 mg/dl (0.0-0.2) H 04/02/17 07:00 AST 64 U/L (10-42) H D 04/02/17 07:00 ALT 129 U/L (10-40) H D 04/02/17 07:00 Alkaline Phosphatase 148 U/L (32-92) H 04/02/17 07:00 Troponin I 0.01 ng/ml (0.00-0.05) 04/01/17 11:00 Total Protein 5.6 g/dl (6.4-8.3) L D 04/02/17 07:00 Albumin 2.9 g/dl (3.5-5.0) L D 04/02/17 07:00 Lipase 29 U/L (22-51) 04/01/17 11:00 LFTs coming down renal function significantly improved wbc down to normal Urine Test Results Urine Color Yellow 04/01/17 18:50 Urine Appearance Sl cloudy 04/01/17 18:50 Urine pH 5.5 (4.5-8) 04/01/17 18:50 Ur Specific [place] 1.015 (1.005-1.025) 04/01/17 18:50 Urine Protein 1+ (NEGATIVE) H 04/01/17 18:50 Urine Glucose (UA) Negative (NEGATIVE) 04/01/17 18:50 Urine Ketones Trace (NEGATIVE) 04/01/17 18:50 Urine Blood 3+ (NEGATIVE) H 04/01/17 18:50 Urine Nitrite Negative (NEGATIVE) 04/01/17 18:50 Urine Bilirubin Negative (NEGATIVE) 04/01/17 18:50 Ur Leukocyte Esterase 1+ (NEGATIVE) H 04/01/17 18:50 Urine RBC 60-100 /hpf (0-3) 04/01/17 18:50 Urine WBC 5-10 (3-5) 04/01/17 18:50 Ur Epithelial Cells Few /HPF 04/01/17 18:50 Urine Bacteria Few /hpf (NEGATIVE) 04/01/17 18:50 urine lytes/Cr noted Problem List - Problems (1) Diverticulitis large intestine w/o perforation or abscess w/o bleeding Assessment/Plan: no abdominal pain or tenderness doubt actual colitis or diverticulitis - most likely secondary inflammation from retroperitoneal process would resume po with diet antibiotics to cover urologic indication pt will need colonoscopy as outpatient Code(s): K57.32 - DVTRCLI OF LG INT W/O PERFORATION OR ABSCESS W/O BLEEDING (2) Obstructive uropathy Assessment/Plan: Mejia in place monitor UOP and I/O's strictly, q2-4 hours until UOP decreases on IV antibiotics Levo/Flagyl - adjust dosing for renal function nephrology on board, urology consult pending renal function improved significantly anticipate Mejia for at least a week or so given degree of bladder distention and likely atony PSA pending Code(s): N13.9 - OBSTRUCTIVE AND REFLUX UROPATHY, UNSPECIFIED (3) Enlarged prostate with urinary obstruction Assessment/Plan: PSA pending Mejia in place see above Urology consult Code(s): N40.1 - BENIGN PROSTATIC HYPERPLASIA WITH LOWER URINARY TRACT SYMP N13.8 - OTHER OBSTRUCTIVE AND REFLUX UROPATHY (4) Acute renal impairment Assessment/Plan: secondary to obstructive uropathy improving significantly trend labs nephrology on board adjust med/abx dosing as renal function improves Code(s): N28.9 - DISORDER OF KIDNEY AND URETER, UNSPECIFIED (5) Fragile X syndrome in male Code(s): Q87.89 - OTH CONGENITAL MALFORMATION SYNDROMES, NEC (6) Mental retardation associated with Fragile X syndrome Code(s): F79 - UNSPECIFIED INTELLECTUAL DISABILITIES Q99.2 - FRAGILE X CHROMOSOME
[2017-04-02] MEDS: D5-1/2NS+20 MEQ KCL - 1,000 ML IV SCH (11:10)
[2017-04-02] MEDS ORDERED: LEVOFLOXACIN 500 MG IVPB 100 ML IVPB ONE (12:00)
[2017-04-02] MEDS ORDERED: FLU VACCINE QUAD 60 MCG/0.5 ML (MDV 17-18) IM ONE (13:00)
[2017-04-02] MEDS: RANITIDINE HCL 150 MG TABLET (FP) PO SCH (14:51)
[2017-04-03] MEDS: METRONIDAZOLE 500 MG PREMIXED 100 ML IVPB SCH ×3 (02:03→18:16)
[2017-04-03] MEDS: HEPARIN NA (PORCINE) 5,000 UNITS/ML 1ML VIAL SQ SCH ×3 (06:38→21:59)
--- NOTE | 2017-04-03 07:40 | PN ---
Physical Exam: SUBJECTIVE: Patient seen and examined, smiling and nods, appears comfortable OBJECTIVE:Patient is a 51 y/o male with a past medical history of fragile x syndrome, mild MR. Patient was admitted from the emergency department for OPAL and obstructive uropathy. Vital Signs Period Temp Pulse Resp BP Sys/Suarez Pulse Ox Last 24 Hr 97.6 F-98.1 F 76-83 18-18 113-125/68-72 Intake & Output 04/02/17 04/03/17 04/03/17 23:59 07:59 15:59 Intake Total 240 850 715 Output Total 900 1000 Balance -660 -150 715 Intake: IV 750 Normal Saline 750 IVPB 100 Oral 240 715 Output: Urine 900 1000 Collins 900 1000 Other: Voiding Method Indwelling Catheter Indwelling Catheter Urinal GENERAL: The patient is awake, alert, and fully oriented, in no acute distress. HEAD: Normal with no signs of trauma. EYES: PERRL, extraocular movements intact, sclera anicteric, conjunctiva clear. No ptosis. ENT: Ears normal, nares patent, oropharynx clear without exudates, moist mucous membranes. NECK: Trachea midline, full range of motion, supple. LUNGS: Breath sounds equal, clear to auscultation bilaterally, no wheezes, no crackles, no accessory muscle use. HEART: Regular rate and rhythm, S1, S2 without murmur, rub or gallop. ABDOMEN: Soft, nontender, nondistended, normoactive bowel sounds, no guarding, no rebound, no hepatosplenomegaly, no masses. EXTREMITIES: 2+ pulses, warm, well-perfused, no edema. NEUROLOGICAL: Cranial nerves II through XII grossly intact. Normal speech, gait not observed. PSYCH: Normal mood, normal affect. SKIN: Warm, dry, normal turgor, no rashes or lesions noted Laboratory Results - last 24 hr CBC WBC 7.2 K/mm3 (4.0-10.8) 04/03/17 07:30 RBC 3.99 M/mm3 (4.00-5.60) L 04/03/17 07:30 Hgb 12.5 GM/dl (11.7-16.9) 04/03/17 07:30 Hct 37.3 % (35.4-49) 04/03/17 07:30 MCV 93.4 fl (80-96) 04/03/17 07:30 MCH 31.3 pg (25.7-33.7) 04/03/17 07:30 MCHC 33.5 g/dl (32.0-35.9) 04/03/17 07:30 RDW 14.1 % (11.9-15.9) 04/03/17 07:30 Plt Count 180 K/MM3 (134-434) 04/03/17 07:30 MPV 8.2 fl (7.5-11.1) 04/03/17 07:30 Neutrophils % 63.7 % (42.8-82.8) 04/03/17 07:30 Lymphocytes % 24.2 % (8-40) D 04/03/17 07:30 Monocytes % 9.6 % (3.8-10.2) 04/03/17 07:30 Eosinophils % 2.0 % (0-4.5) D 04/03/17 07:30 Basophils % 0.5 % (0-2.0) 04/03/17 07:30 CMP Sodium 139 mmol/L (136-145) 04/03/17 07:30 Potassium 3.7 mmol/L (3.5-5.1) 04/03/17 07:30 Chloride 105 mmol/L (98-107) 04/03/17 07:30 Carbon Dioxide 27 mmol/L (22-28) 04/03/17 07:30 Anion Gap 7 (8-16) L 04/03/17 07:30 BUN 21 mg/dl (7-18) H D 04/03/17 07:30 Creatinine 1.0 mg/dl (0.6-1.3) D 04/03/17 07:30 Creat Clearance w eGFR 48.95 (>60) 04/02/17 07:00 Random Glucose 104 mg/dl (74-106) 04/03/17 07:30 Lactic Acid 1.1 mmol/L (0.4-2.0) 04/01/17 11:58 Calcium 8.3 mg/dl (8.4-10.2) L 04/03/17 07:30 Phosphorus 2.3 mg/dl (2.5-4.6) L 04/03/17 07:30 Magnesium 1.8 mg/dL (1.8-2.4) D 04/03/17 07:30 Total Bilirubin 1.1 mg/dl (0.2-1.0) H D 04/02/17 07:00 Direct Bilirubin 0.3 mg/dl (0.0-0.2) H 04/02/17 07:00 AST 64 U/L (10-42) H D 04/02/17 07:00 ALT 129 U/L (10-40) H D 04/02/17 07:00 Alkaline Phosphatase 148 U/L (32-92) H 04/02/17 07:00 Troponin I 0.01 ng/ml (0.00-0.05) 04/01/17 11:00 Total Protein 5.6 g/dl (6.4-8.3) L D 04/02/17 07:00 Albumin 2.9 g/dl (3.5-5.0) L D 04/02/17 07:00 Lipase 29 U/L (22-51) 04/01/17 11:00 Prostate Specific Ag 4.20 ng/ml (0.0-4.0) H 04/02/17 07:00 Active Medications Generic Name Dose Route Start Last Admin Trade Name Freq PRN Reason Stop Dose Admin Heparin Sodium (Porcine) 5,000 unit 04/01/17 22:00 04/03/17 06:38 Heparin - SQ 5,000 unit TID ANDI Administration Metronidazole 100 mls @ 100 mls/hr 04/01/17 22:00 04/03/17 09:32 Flagyl 500mg Premixed Ivpb - IVPB 100 mls/hr Q8H-IV ANDI Administration Potassium Chloride/Dextrose/Sod Cl 1,000 mls @ 60 mls/hr 04/02/17 10:37 12:23 D5-1/2ns+20 Meq Kcl - IV 60 mls/hr ASDIR ANDI Administration Potassium Phos/Sodium Phos 1 packet 04/03/17 10:00 04/03/17 09:33 Phos-Nak Packet - PO 1 packet BID ANDI Administration Ranitidine HCl 150 mg 04/02/17 13:00 04/03/17 09:33 Zantac - PO 150 mg DAILY ANDI Administration Tamsulosin HCl 0.4 mg 04/02/17 10:00 04/03/17 08:38 Flomax - PO 0.4 mg DAILY@0830 [facility] Administration Microbiology 04/01/17 18:50 Urine - Urine Collins Urine Culture - Final NO GROWTH OBTAINED 04/01/17 14:20 Urine - Urine Clean Catch Urine Culture - Final NO GROWTH OBTAINED 04/01/17 11:20 Urine - Urine Clean Catch Urine Culture - Final NO GROWTH OBTAINED IMAGING ct of abd/pelvis: mild acute diverticulitis, mild bilateral hydronephrosis chest xray: no acute pathology ultrasound of abd/pelvis, no signs of hydronephrosis or stones ASSESSMENT/PLAN: 1) GI Acute diverticulitis - continue flagyl and levaquin - no leukocytosis, pt is afebrile - tolearting regular diet - surgery, Dr Christina consulted and following transanimitis - benign abdominal exam, lft's trending downward 2) urology/nephrology acute renal failure secondary to obstructive uropathy, - creatine 1.0, resolved - PSA elevated, will require outpatient follow up - continue flomax - discontinue collins, start voiding trial - case discussed with urologist, Dr Groves, aggrees with plan, - nephrology consulted and following f/e/n - regular diet - hyponatremia secondary to hypovolemia, resolved after IV hydration ppx - heparin - zantac - oob - pt dispo: requires inpatient admission Code status : full code Visit type - Emergency Visit Emergency Visit: Yes ED Registration Date: 04/01/17 Care time: The patient presented to the Emergency Department on the above date and was hospitalized for further evaluation of their emergent condition. - New Patient This patient is new to me today: No - Critical Care Critical Care patient: No - Discharge Referral Referred to [facility] Med P.C.: No
[2017-04-03 08:08] LABS: BASOPHIL 0.5 % (0-2.0); MCH 31.3 pg (25.7-33.7); MCHC 33.5 g/dl (32.0-35.9); MEAN CELL VOLUME 93.4 fl (80-96); MEAN PLT VOLUME 8.2 fl (7.5-11.1); NEUTROPHILS 63.7 % (42.8-82.8); PLATELET COUNT 180 K/MM3 (134-434); RDW 14.1 % (11.9-15.9); WHITE BLOOD COUNT 7.2 K/mm3 (4.0-10.8)
[2017-04-03 08:28] LABS: ANION GAP 7 (8-16); CALCIUM 8.3 mg/dl (8.4-10.2); CO2 27 mmol/L (22-28); GLUCOSE,RANDOM 104 mg/dl (74-106); MAGNESIUM 1.8 mg/dL (1.8-2.4); PHOSPHOROUS 2.3 mg/dl (2.5-4.6)
[2017-04-03] MEDS ORDERED: MAGNESIUM SULF 50% (8.12 MEQ/2 ML-1 GM VIAL) IVPB ONE (08:38)
[2017-04-03] MEDS: TAMSULOSIN HCL 0.4 MG CAP.ER.24H (FP) PO SCH (08:38)
[2017-04-03] MEDS: RANITIDINE HCL 150 MG TABLET (FP) PO SCH (09:33)
[2017-04-03] MEDS: NAPH,MB-DB/K PH,MBDB POWDER PACKET PO SCH ×2 (09:33→21:59)
[2017-04-03] MEDS ORDERED: LEVOFLOXACIN 250 MG IVPB 50 ML IVPB SCH (10:00)
[2017-04-03] MEDS ORDERED: LEVOFLOXACIN 500 MG IVPB 100 ML IVPB ONE (10:51)
[2017-04-03] MEDS: D5-1/2NS+20 MEQ KCL - 1,000 ML IV SCH (12:23)
--- NOTE | 2017-04-03 18:24 | EKG ---
Test Reason : Blood Pressure : / mmHG Vent. Rate : 082 BPM Atrial Rate : 082 BPM P-R Int : 120 ms QRS Dur : 092 ms QT Int : 364 ms P-R-T Axes : 044 014 053 degrees QTc Int : 425 ms SINUS RHYTHM WITH PREMATURE SUPRAVENTRICULAR COMPLEXES NONSPECIFIC ST ABNORMALITY ABNORMAL ECG NO PREVIOUS ECGS AVAILABLE REPEAT EKG IF CLINICALLY INDICATED Confirmed by NEISHA ANDERSON MD ([id number]) on 04/03/2017 6:24:10 PM Referred By: AMINTA Confirmed By:NEISHA ANDERSON MD
[2017-04-04] MEDS: METRONIDAZOLE 500 MG PREMIXED 100 ML IVPB SCH ×2 (01:49→10:30)
[2017-04-04] MEDS: HEPARIN NA (PORCINE) 5,000 UNITS/ML 1ML VIAL SQ SCH (05:32)
[2017-04-04 06:26] VITALS: BP 108/65; PULSE 74; TEMP 97.7
--- NOTE | 2017-04-04 10:12 | PN ---
Progress Note (short form) - Note Progress Note: Renal follow up for OPAL Pt seen and examined at the bedside awake and alert no acute complaints no sob, chest pain, abd pain failed trial of void yesterday collins re-inserted and pt making good urine Vital Signs Temperature 97.7 F 04/04/17 06:25 Pulse Rate 74 04/04/17 06:25 Respiratory Rate 17 04/04/17 06:25 Blood Pressure 108/65 04/04/17 06:25 O2 Sat by Pulse Oximetry (%) 96 04/04/17 06:25 Intake & Output 04/01/17 04/02/17 04/03/17 04/04/17 23:59 23:59 23:59 23:59 Intake Total 9223 310 4903 950 Output Total 3095 2998 1650 1900 Balance -1895 -2758 1315 -950 Weight 188 lb 0.6 oz 188 lb 0.6 oz NAD RRR, No M/R CTA soft NT/ND Collins in place No LE edema CBC, BMP 04/03/17 07:30 04/03/17 07:30 Current Medications Heparin Sodium (Porcine) (Heparin -) 5,000 unit SQ TID [facility] Last Admin: 04/04/17 05:32 Dose: 5,000 unit Metronidazole (Flagyl 500mg Premixed Ivpb -) 100 mls @ 100 mls/hr IVPB Q8H-IV [facility] Last Admin: 04/04/17 01:49 Dose: 100 mls/hr Potassium Chloride/Dextrose/Sod Cl (D5-1/2ns+20 Meq Kcl -) 1,000 mls @ 60 mls/ hr IV ASDIR [facility] Last Admin: 04/03/17 12:23 Dose: 60 mls/hr Potassium Phos/Sodium Phos (Phos-Nak Packet -) 1 packet PO BID [facility] Last Admin: 04/03/17 21:59 Dose: 1 packet Ranitidine HCl (Zantac -) 150 mg PO DAILY [facility] Last Admin: 04/03/17 09:33 Dose: 150 mg Tamsulosin HCl (Flomax -) 0.4 mg PO DAILY@0830 [facility] Last Admin: 04/03/17 08:38 Dose: 0.4 mg A/P 51 year old gentleman with PMhx of fragile X syndrome, mild MR, highly functional per chart, mild MVP who presented with complaints of Abd distension and decreased BM and found to have OPAL in setting of obstructive uropathy #Acute Kidney injury in the setting of obstructive uropathy with an enlarged prostate Pt failed trial of void yesterday it may take several days for flomax to have an effect and even then the pt may need to have a indwelling collins urology consult pending, likely will need TURP + Biopsy given elevated PSA Renal function now improved to baseline plan to stop IVF today if labs are normal (am labs pending) Og Cedeno DO Problem List - Problems (1) Acute renal impairment Code(s): N28.9 - DISORDER OF KIDNEY AND URETER, UNSPECIFIED (2) Fragile X syndrome in male Code(s): Q87.89 - OTH CONGENITAL MALFORMATION SYNDROMES, NEC (3) Mental retardation associated with Fragile X syndrome Code(s): F79 - UNSPECIFIED INTELLECTUAL DISABILITIES Q99.2 - FRAGILE X CHROMOSOME (4) Obstructive uropathy Code(s): N13.9 - OBSTRUCTIVE AND REFLUX UROPATHY, UNSPECIFIED (5) Urinary retention Code(s): R33.9 - RETENTION OF URINE, UNSPECIFIED (6) BPH (benign prostatic hyperplasia) Code(s): N40.0 - BENIGN PROSTATIC HYPERPLASIA WITHOUT LOWER URINRY TRACT SYMP
[2017-04-04] MEDS: TAMSULOSIN HCL 0.4 MG CAP.ER.24H (FP) PO SCH (10:29)
[2017-04-04] MEDS: RANITIDINE HCL 150 MG TABLET (FP) PO SCH (10:30)
[2017-04-04] MEDS: NAPH,MB-DB/K PH,MBDB POWDER PACKET PO SCH (10:30)
[2017-04-04 11:28] LABS: ANION GAP 5 (8-16); CALCIUM 8.5 mg/dl (8.4-10.2); CO2 28 mmol/L (22-28); CREATININE 0.8 mg/dl (0.6-1.3); GLUCOSE,RANDOM 97 mg/dl (74-106); PHOSPHOROUS 2.9 mg/dl (2.5-4.6)
--- NOTE | 2017-04-04 13:06 | DS ---
Physical Exam: SUBJECTIVE: Patient seen and examined OBJECTIVE: Vital Signs Period Temp Pulse Resp BP Sys/Suarez Pulse Ox Last 24 Hr 97.7 F-98.5 F 74-94 16-18 98-117/65-71 96-97 PHYSICAL EXAM GENERAL: The patient is awake, alert, and fully oriented, in no acute distress. HEAD: Normal with no signs of trauma. EYES: PERRL, extraocular movements intact, sclera anicteric, conjunctiva clear. ENT: Ears normal, nares patent, oropharynx clear without exudates, moist mucous membranes. NECK: Trachea midline, full range of motion, supple. LUNGS: Breath sounds equal, clear to auscultation bilaterally, no wheezes, no crackles, no accessory muscle use. HEART: Regular rate and rhythm, S1, S2 without murmur, rub or gallop. ABDOMEN: Soft, nontender, nondistended, normoactive bowel sounds, no guarding, no rebound, no hepatosplenomegaly, no masses. EXTREMITIES: 2+ pulses, warm, well-perfused, no edema. NEUROLOGICAL: Cranial nerves II through XII grossly intact. Normal speech, gait not observed. PSYCH: Normal mood, normal affect. SKIN: Warm, dry, normal turgor, no rashes or lesions noted. LABS Laboratory Results - last 24 hr 04/04/17 Unknown Sodium 137 Potassium 3.8 Chloride 104 Carbon Dioxide 28 Anion Gap 5 L BUN 16 D Creatinine 0.8 Random Glucose 97 Calcium 8.5 Phosphorus 2.9 D HOSPITAL COURSE: Date of Admission:04/01/17 Date of Discharge: 04/04/17 Minutes to complete discharge: 45 Discharge Summary Reason For Visit: RENAL FAILURE, DIVERTICULITIS & URINE RETENTION Current Active Problems Acute renal impairment (Acute) BPH (benign prostatic hyperplasia) (Acute) Diverticulitis (Acute) Diverticulitis large intestine w/o perforation or abscess w/o bleeding (Acute) Enlarged prostate with urinary obstruction (Acute) Fragile X syndrome in male (Acute) Mental retardation associated with Fragile X syndrome (Acute) Obstructive uropathy (Acute) Renal failure (Acute) Urinary retention (Acute) Condition: Improved - Instructions Diet, Activity, Other Instructions: resume regular diet continue levaquin and flagyl for the next 5 days please follow up with your primary care physician with 2 weeks please follow up with the urologist within 1 week if any new or persistent symptoms develop please return to the emergency department Referrals: Senthil Groves MD [Staff Physician] - 1 Week Baltazar Plascencia MD [Staff Physician] - 3 Weeks Imelda Jo MD [Staff Physician] - 2 Weeks Disposition: HOME - Home Medications Comprehensive Discharge Medication List: Ambulatory Orders Cholecalciferol (Vitamin D3) [Vitamin D -] 2,000 unit PO DAILY 04/01/17 Mv-Mn/FA/Coq10/Lycopene/Lutein [Theragran-M Premier 50+ Caplet] 1 each PO DAILY 04/01/17 Levofloxacin [Levaquin -] 500 mg PO DAILY #5 tablet 04/03/17 Metronidazole [Flagyl -] 500 mg PO TID #15 tablet 04/03/17 Ranitidine [Zantac -] 150 mg PO DAILY tablet 04/03/17 Tamsulosin HCl [Flomax -] 0.4 mg PO DAILY@0830 #30 tab 04/03/17 - Discharge Referral Referred to [facility] No
== END 2017-04-04 14:06 | disposition home or self-care (01) | DRG 683 ==
LOC: FER 11:00 → FM/S 16:05
PROVIDERS: ADMIT Internal Medicine; ATTEND Nurse Practitioner Family
DX: N17.9 Acute kidney failure, unspecified (principal); E87.1 Hypo-osmolality and hyponatremia; K57.32 Diverticulitis of large intestine without perforation or abscess without bleeding; N39.0 Urinary tract infection, site not specified; Q99.2 Fragile X chromosome; N13.30 Unspecified hydronephrosis; F70 Mild intellectual disabilities; R33.8 Other retention of urine; R79.89 Other specified abnormal findings of blood chemistry; N13.9 Obstructive and reflux uropathy, unspecified; N40.0 Benign prostatic hyperplasia without lower urinary tract symptoms; E86.1 Hypovolemia
CPT/HCPCS: 36415; 71020-TC; 74020-TC; 74176-TC; 76775-TC; 80048; 80053; 81003; 81015; 82248; 82436; 82570; 83605; 83690; 83735; 84100; 84133; 84153; 84300; 84484; 85025; 87086; 90688; 93005; 97116-GP; 97161-GP; 99285-25; G0008; J1644

== ENCOUNTER 2017-04-05 05:47 | Emergency (ER) | payer OTHER ==
[2017-04-05 05:54] VITALS: BP 128/85; PULSE 83; TEMP 98; BMI 27.2
--- NOTE | 2017-04-05 06:18 | PDOC ---
History of Present Illness - General Chief Complaint: Urinary Catheter Problem Stated Complaint: URINARY CATH PROBLEMS Time Seen by Provider: 04/05/17 06:18 - History of Present Illness Initial Comments: 04/05/17 06:20 Chief complaint: Mejia catheter dysfunction History of present illness: Patient with BPH, Mejia catheter placed Sunday for urinary retention. This evening mother noted that catheter was not draining and the patient was experiencing abdominal pain. The patient is mentally disabled and unable to sufficiently communicate verbally. Review of systems: Mother reports bloody drainage from the catheter. Abdominal pain. No nausea or vomiting. No fever. Eating and drinking as usual Past medical history: The bpH, on Flomax, Levaquin, and metronidazole. Social/family history: Severe mental retardation since , lives with his mother, requires total care by her. Alert, well-developed well-nourished, appears to be in [id number] distress due to abdominal discomfort Afebrile, vital signs normal HEENT clear Neck supple without bruit mass or nodes Chest clear CV regular without murmur or gallop Abdomen mildly distended. Suprapubic tenderness. Bladder is percussed to the level of the umbilicus. No guarding or rebound. No upper quadrant tenderness Mejia catheter in place, bloody fluid in the catheter tube and no drainage occurring spontaneously Impression: Obstruction of Mejia catheter Plan: Irrigation, if unsuccessful, replace catheter. Past History - Past Medical History Allergies/Adverse Reactions: Allergies Allergy/AdvReac Type Severity Reaction Status Date / Time No Known Allergies Allergy Verified 04/01/17 11:04 Home Medications: Ambulatory Orders Cholecalciferol (Vitamin D3) [Vitamin D -] 2,000 unit PO DAILY 04/01/17 Mv-Mn/FA/Coq10/Lycopene/Lutein [Theragran-M Premier 50+ Caplet] 1 each PO DAILY 04/01/17 Levofloxacin [Levaquin -] 500 mg PO DAILY #5 tablet 04/03/17 Metronidazole [Flagyl -] 500 mg PO TID #15 tablet 04/03/17 Ranitidine [Zantac -] 150 mg PO DAILY tablet 04/03/17 Tamsulosin HCl [Flomax -] 0.4 mg PO DAILY@0830 #30 tab 04/03/17 Cardiac Disorders: Yes (MVP) COPD: Yes - Surgical History Cholecystectomy: Yes - Suicide/Smoking/Psychosocial Hx Smoking Status: No Smoking History: Never smoked Have you smoked in the past 12 months: No Number of Cigarettes Smoked Daily: 0 Information on smoking cessation initiated: No Hx Alcohol Use: No Drug/Substance Use Hx: No Substance Use Type: None Hx Substance Use Treatment: No *Physical Exam - Vital Signs Last Vital Signs Temp Pulse Resp BP Pulse Ox 98.0 F 83 14 128/85 96 04/05/17 05:48 04/05/17 05:48 04/05/17 05:48 04/05/17 05:48 04/05/17 05:48 Medical Decision Making - Medical Decision Making 04/05/17 06:24 Procedure note: Replacement of Mejia catheter It was possible to introduce fluid in 2 day old catheter, however, it would not drain back out and increased the patient discomfort. The old catheter was removed after deflation of the balloon. It appeared to be filled with clot A new catheter was passed without much difficulty and immediately drained urine that was completely clear. There was no sign of clot or blood. The catheter was an 18 coud to replace the regular 16 Mejia. Free drainage occurred of a large amount of clear urine and the patient was immediately more comfortable. The bladder decompressed in the abdomen became soft and nontender with drainage of the urine Patient was discharged ambulatory and in no distress with his mother to follow- up with Dr. Mackenzie, urologist, later today as scheduled. *DC/Admit/Observation/Transfer Diagnosis at time of Disposition: Urinary retention - Discharge Dispostion Disposition: HOME Condition at time of disposition: Improved Admit: No - Patient Instructions Printed Discharge Instructions: DI for Urinary Retention in Men, How to Care for Your Mejia Catheter -- Male Additional Instructions: See urologist as scheduled today.
== END 2017-04-05 06:47 | disposition home or self-care (01) ==
LOC: FER 05:47
PROC: 0T9B70Z Drainage of Bladder with Drainage Device, Via Natural or Artificial Opening (ICD-10-PCS; principal; 2017-04-05)
DX: R33.9 Retention of urine, unspecified (principal); N40.0 Benign prostatic hyperplasia without lower urinary tract symptoms; F79 Unspecified intellectual disabilities
CPT/HCPCS: 99283-25

== ENCOUNTER 2017-06-12 13:08 | Emergency (ER) | payer OTHER ==
--- NOTE | 2017-06-12 13:20 | PDOC ---
History of Present Illness <Whitley Mcleod - Last Filed: 06/12/17 14:25> - General History Source: Parent(s) Exam Limitations: No Limitations - History of Present Illness Initial Comments: 06/12/17 14:32 The patient is a 52-year-old male with a history of Fragile X syndrome, mild MVP, non-verbal, highly functional, mild mental retardation, who presents to the ED with his mother with complaints of rash to his back and abdomen after taking Macrobid for a UTI. The patient was prescribed 20 tablets of macrobid and mother reports that the patient only took 7. He was seen in the ED on 04/27 with a rash after taking Bactrim DS. Mother denies that the patient is experiencing any fever or shortness of breath. <Coral Dhaliwal - Last Filed: 06/12/17 14:45> - General Chief Complaint: Allergic Reaction Stated Complaint: allergic reaction Time Seen by Provider: 06/12/17 13:19 Past History - Past Medical History Cardiac Disorders: Yes (MVP) COPD: No GI Disorders: Yes (DIVERTICULITIS) Disorders: Yes (BPH, URINARY RETENTION) - Surgical History Cholecystectomy: Yes - Suicide/Smoking/Psychosocial Hx Smoking Status: No Smoking History: Never smoked Have you smoked in the past 12 months: No Number of Cigarettes Smoked Daily: 0 Hx Alcohol Use: No Drug/Substance Use Hx: No Substance Use Type: None Hx Substance Use Treatment: No <Whitley Mcleod - Last Filed: 06/12/17 14:25> <Coral Dhaliwal - Last Filed: 06/12/17 14:45> - Past Medical History Allergies/Adverse Reactions: Allergies Allergy/AdvReac Type Severity Reaction Status Date / Time Sulfa (Sulfonamide Allergy Unknown Rash Verified 06/12/17 13:10 Antibiotics) Home Medications: Ambulatory Orders Cephalexin Monohydrate [Keflex -] 500 mg PO BID #14 capsule 06/12/17 Nitrofurantoin Macrocrystal [Nitrofurantoin] 100 mg PO BID 06/12/17 Review of Systems - Review of Systems Able to Perform ROS?: Yes Comments:: 06/12/17 14:42 GENERAL/CONSTITUTIONAL: No fever or chills. No weakness. HEAD, EYES, EARS, NOSE AND THROAT: No change in vision. No ear pain or discharge. No sore throat. CARDIOVASCULAR: No chest pain or shortness of breath. RESPIRATORY: No cough, wheezing, or hemoptysis. SKIN: (+)rash noted on back and abdomen. GASTROINTESTINAL: No nausea, vomiting, diarrhea or constipation. GENITOURINARY: No dysuria, frequency, or change in urination. MUSCULOSKELETAL: No joint or muscle swelling or pain. No neck or back pain. NEUROLOGIC: No headache, vertigo, loss of consciousness, or change in strength/ sensation. ENDOCRINE: No increased thirst. No abnormal weight change. HEMATOLOGIC/LYMPHATIC: No anemia, easy bleeding, or history of blood clots. ALLERGIC/IMMUNOLOGIC: (+)rash noted on back and abdomen. <Coral Dhaliwal - Last Filed: 06/12/17 14:45> *Physical Exam - Physical Exam Comments: GENERAL: Awake, alert, and fully oriented, in no acute distress HEAD: No signs of trauma EYES: PERRLA, EOMI, sclera anicteric, conjunctiva clear ENT: Auricles normal inspection, hearing grossly normal, nares patent, oropharynx clear without exudates. Moist mucosa NECK: Normal ROM, supple, no lymphadenopathy, JVD, or masses LUNGS: Breath sounds equal, clear to auscultation bilaterally. No wheezes, and no crackles HEART: Regular rate and rhythm, normal S1 and S2, no murmurs, rubs or gallops ABDOMEN: Soft, nontender, normoactive bowel sounds. No guarding, no rebound. No masses EXTREMITIES: Normal range of motion, no edema. No clubbing or cyanosis. No cords, erythema, or tenderness NEUROLOGICAL: Cranial nerves II through XII grossly intact. Normal gait. Very limited verbal communication (chronic as per family). SKIN: Warm, Dry, normal turgor, no rashes. +5 lesions to the back (4 on L and 1 on R side)- erythematous with excoriations. No vesicles noted. +Few scattered lesions to the abdomen similar to findings on back. <Whitley Mcleod - Last Filed: 06/12/17 14:25> - Vital Signs Last Vital Signs Temp Pulse Resp BP Pulse Ox 97.1 F L 89 20 129/81 98 06/12/17 13:09 06/12/17 13:09 06/12/17 13:06/12/17 13:06/12/17 13:09 <Coral Dhaliwal - Last Filed: 06/12/17 14:45> Medical Decision Making - Medical Decision Making 06/12/17 14:21 Rash unlikely to be shingles as it crosses the midline and is not in a dermatomal distribution. More likely that this is a contact dermatitis. However , given that he is on an antibiotic, will change it, as this is a possible source for reaction. No oral mucosal lesions. No systemic symptoms. Stable for DC home. <Whitley Mcleod - Last Filed: 06/12/17 14:25> *DC/Admit/Observation/Transfer - Discharge Dispostion Admit: No <Whitley Mcleod - Last Filed: 06/12/17 14:25> - Attestations Scribe Attestion: 06/12/17 14:44 Documentation prepared by Coral Dhaliwal, acting as medical hospital sales for Whitley Mcleod MD. <Coral Dhaliwal - Last Filed: 06/12/17 14:45> Diagnosis at time of Disposition: UTI (urinary tract infection) Qualifiers: Urinary tract infection type: acute cystitis Hematuria presence: without hematuria Qualified Code(s): N30.00 - Acute cystitis without hematuria Allergic reaction Qualifiers: Encounter type: initial encounter Qualified Code(s): T78.40XA - Allergy, unspecified, initial encounter - Discharge Dispostion Disposition: HOME Condition at time of disposition: Stable - Prescriptions Prescriptions: Cephalexin Monohydrate [Keflex -] 500 mg PO BID #14 capsule - Patient Instructions Printed Discharge Instructions: DI for General Allergic Reactions
[2017-06-12 13:28] VITALS: BP 129/81; PULSE 89; TEMP 97.1; BMI 25.7
[2017-06-12] MEDS ORDERED: diphenhydrAMINE HCL 25 MG CAPSULE (FP) PO ONE ×2 (14:24→14:31)
[2017-06-12] MEDS ORDERED: CEPHALEXIN MONOHYDRATE 500 MG CAPSULE (UD) PO ONE (14:24)
[2017-06-12] MEDS ORDERED: CEPHALEXIN MONOHYDRATE 500 MG CAPSULE (UD) ONE (14:31)
== END 2017-06-12 14:39 | disposition home or self-care (01) ==
LOC: FER 13:08
DX: N30.00 Acute cystitis without hematuria (principal); T78.40XA Allergy, unspecified, initial encounter; X58.XXXA Exposure to other specified factors, initial encounter; Y93.89 Activity, other specified; Y92.9 Unspecified place or not applicable; F79 Unspecified intellectual disabilities; D68.2 Hereditary deficiency of other clotting factors; N40.0 Benign prostatic hyperplasia without lower urinary tract symptoms
CPT/HCPCS: 99281-25

== ENCOUNTER 2017-06-13 11:34 | Inpatient (IN) | payer OTHER ==
[2017-06-13 11:40] VITALS: BMI 27.8
[2017-06-13] MEDS ORDERED: SODIUM CHLORIDE 1,000 ML IV STA (14:03)
[2017-06-13 14:41] LABS: BASO % 0.7 % (0-2.0); EOS % 0.2 % (0-4.5); HEMATOCRIT 43.9 % (35.4-49); LYMPH % 9.8 % (8-40); MCH 29.6 pg (25.7-33.7); MEAN CELL VOLUME 92.5 fl (80-96); MEAN PLT VOLUME 7.4 fl (7.5-11.1); MONO % 8.3 % (3.8-10.2); PLATELET COUNT 268 K/MM3 (134-434); RBC 4.74 M/mm3 (4.00-5.60); RDW 15.2 % (11.9-15.9); WHITE BLOOD COUNT 9.9 K/mm3 (4.0-10.0)
[2017-06-13 14:55] LABS: ALBUMIN 3.9 g/dl (3.4-5.0); ANION GAP 9 (8-16); BILIRUBIN,TOTAL 1.3 mg/dL (0.2-1.0); BLOOD UREA NITROGEN 35 mg/dL (7-18); CALCIUM 9.5 mg/dL (8.5-10.1); CHLORIDE 105 mmol/L (98-107); CO2 27 mmol/L (21-32); CREATININE 1.6 mg/dL (0.7-1.3); GLUCOSE,RANDOM 103 mg/dL (74-106); POTASSIUM 4.3 mmol/L (3.5-5.1); SGOT/AST 42 U/L (15-37); SGPT/ALT 52 U/L (12-78); SODIUM 141 mmol/L (136-145); TOT PROT 7.4 g/dl (6.4-8.2)
[2017-06-13 14:56] LABS: ALK PHOS 143 U/L (45-117)
[2017-06-13 15:11] LABS: INR 0.98 (0.82-1.09); PROTHROMBIN TIME (PATIENT) 11.1 SEC (9.98-11.88)
[2017-06-13 15:13] LABS: ACTIVATED PTT 31.9 SECONDS (26.9-34.4)
--- NOTE | 2017-06-13 15:30 | PDOC ---
Attending Attestation - Resident Resident Name: Valeriy Kenny - ED Attending Attestation I have performed the following: I have examined & evaluated the patient, The case was reviewed & discussed with the resident, I agree w/resident's findings & plan, Exceptions are as noted - HPI HPI: 06/13/17 15:26 "The patient is a 52 year old male, with a significant past medical history of BPH, urinary retention, and fragile X syndrome with mild MR, who presents to the emergency department accompanied by mother after being sent in by Dr. Groves for potential urologic procedure. Patient unable to provide a history as he is nonverbal. However, mother reports patient has had urinary retention for several weeks. He initially presented to ER, where he was found to have a UTI and was given a collins catheter. Pt was initially started on Bactrim but had an allergic reaction to it. He was subsequently started on Macrobid but did not tolerate that well either. Yesterday, pt went to [place] ER for rash and was started on Keflex, which he has taken once without any adverse reaction. Mother denies patient has had any recent fever, chills, nausea, vomiting, diarrhea, or constipation. Allergies: Sulfa(Sulfonamide antibiotics), nitrofurantoin Social History: Non smoker. No ETOH or recreational drug use. Urologist: Dr. Groves " - Physicial Exam PE: 06/13/17 15:29 "GENERAL: Awake, alert, in no acute distress HEAD: No signs of trauma EYES: PERRLA, EOMI, sclera anicteric, conjunctiva clear ENT: Auricles normal inspection, hearing grossly normal, nares patent, oropharynx clear without exudates. Moist mucosa NECK: Nontender, no stepoffs, Normal ROM, supple, no lymphadenopathy, JVD, or masses LUNGS: Breath sounds equal, clear to auscultation bilaterally. No wheezes, and no crackles HEART: Regular rate and rhythm, normal S1 and S2, no murmurs, rubs or gallops ABDOMEN: Soft, nontender, normoactive bowel sounds. No guarding, no rebound. No masses EXTREMITIES: Normal range of motion, no edema. No clubbing or cyanosis. No cords, erythema, or tenderness NEUROLOGICAL: Cranial nerves II through XII intact. 5/5 strength and sensation in all extremities, Normal speech, normal gait SKIN: Warm, Dry, normal turgor, no rashes or lesions noted. " - Medical Decision Making 06/13/17 15:29 52 M with urinary retention s/p indwelling collins. Now presenting to ER for possible urologic procedure by Dr. Groves. - Labs, UA, UCx - Consult urology Dr. Groves 06/13/17 18:52 CBC,CMP WBC 9.9 K/mm3 (4.0-10.0) 06/13/17 14:25 RBC 4.74 M/mm3 (4.00-5.60) 06/13/17 14:25 Hgb 14.0 GM/dL (11.7-16.9) 06/13/17 14:25 Hct 43.9 % (35.4-49) 06/13/17 14:25 MCV 92.5 fl (80-96) 06/13/17 14:25 MCH 29.6 pg (25.7-33.7) 06/13/17 14:25 MCHC 32.0 g/dl (32.0-35.9) 06/13/17 14:25 RDW 15.2 % (11.9-15.9) 06/13/17 14:25 Plt Count 268 K/MM3 (134-434) 06/13/17 14:25 MPV 7.4 fl (7.5-11.1) L 06/13/17 14:25 Neutrophils % 81.0 % (42.8-82.8) 06/13/17 14:25 Lymphocytes % 9.8 % (8-40) 06/13/17 14:25 Monocytes % 8.3 % (3.8-10.2) 06/13/17 14:25 Eosinophils % 0.2 % (0-4.5) 06/13/17 14:25 Basophils % 0.7 % (0-2.0) 06/13/17 14:25 Sodium 141 mmol/L (136-145) 06/13/17 14:25 Potassium 4.3 mmol/L (3.5-5.1) 06/13/17 14:25 Chloride 105 mmol/L (98-107) 06/13/17 14:25 Carbon Dioxide 27 mmol/L (21-32) 06/13/17 14:25 Anion Gap 9 (8-16) 06/13/17 14:25 BUN 35 mg/dL (7-18) H 06/13/17 14:25 Creatinine 1.6 mg/dL (0.7-1.3) H 06/13/17 14:25 Creat Clearance w eGFR 45.27 (>60) 06/13/17 14:25 Random Glucose 103 mg/dL (74-106) 06/13/17 14:25 Calcium 9.5 mg/dL (8.5-10.1) 06/13/17 14:25 Total Bilirubin 1.3 mg/dL (0.2-1.0) H 06/13/17 14:25 AST 42 U/L (15-37) H 06/13/17 14:25 ALT 52 U/L (12-78) 06/13/17 14:25 Alkaline Phosphatase 143 U/L (45-117) H 06/13/17 14:25 Total Protein 7.4 g/dl (6.4-8.2) 06/13/17 14:25 Albumin 3.9 g/dl (3.4-5.0) 06/13/17 14:25 Pt admitted to hospitalist for procedure with Dr. Groves tomorrow. Pt with distended bladder on US, likely reflecting clogged collins. Order placed for new collins catheter. Admitting team made aware.
--- NOTE | 2017-06-13 15:31 | PDOC ---
History of Present Illness - General Chief Complaint: Revisit, Lab Variance Stated Complaint: PRE-OP/ LOSS OF APPETITE Time Seen by Provider: 06/13/17 13:20 - History of Present Illness Initial Comments: 06/13/17 15:25 The patient is a 52 year old male with a history of BPH, urinary retention, MR and non-verbal who presents for evaluation of urinary retention and lack of po intake. The patient is accompanied by family who assist in providing the history. History is limited given that the patient is non-verbal at baseline. They report that the patient has been experiencing a several month history of urinary retention and has a chronic indwelling collins in place however has been urinating less over the past few days as well as worsening abdominal distension and decreased PO intake. They spoke to the patient's urologist Dr. Groves who requested the patient present to the ER for admission and possible laser treatment of the patient's prostate tomorrow. The patient is not currently complaining of any symptoms as per his norm and as such physical exam and history is limited from the patient. Past History - Past Medical History Allergies/Adverse Reactions: Allergies Allergy/AdvReac Type Severity Reaction Status Date / Time Sulfa (Sulfonamide Allergy Unknown Rash Verified 06/13/17 11:40 Antibiotics) nitrofurantoin Allergy Rash Verified 06/13/17 11:41 Home Medications: Ambulatory Orders NK [No Known Home Medication] 06/13/17 Cardiac Disorders: Yes (MVP) COPD: No GI Disorders: Yes (DIVERTICULITIS) Disorders: Yes (BPH, URINARY RETENTION) Psychiatric Problems: Yes (pt mom not sure of what diagnosis .) - Surgical History Cholecystectomy: Yes - Suicide/Smoking/Psychosocial Hx Smoking Status: No Smoking History: Never smoked Have you smoked in the past 12 months: No Number of Cigarettes Smoked Daily: 0 Hx Alcohol Use: No Drug/Substance Use Hx: No Substance Use Type: None Hx Substance Use Treatment: No Review of Systems - Review of Systems Able to Perform ROS?: No (Non-verbal) *Physical Exam - Vital Signs Last Vital Signs Temp Pulse Resp BP Pulse Ox 99.0 F 85 20 132/87 98 06/13/17 11:35 06/13/17 11:35 06/13/17 11:35 06/13/17 11:35 06/13/17 11:35 - Physical Exam Comments: 06/13/17 15:28 General Appearance: Nourished. No Apparent Distress HEENT: BLANCA. No Pharyngeal Erythema, Tonsillar Exudate, Tonsillar Erythema Neck: No Cervical Lymphadenopathy Respiratory/Chest: Lungs Clear, Normal Breath Sounds. No Crackles, Rales, Rhonchi, Wheezing Cardiovascular: Regular Rhythm, Regular Rate. No Murmur, Gallops, Rubs Gastrointestinal/Abdominal: Normal Bowel Sounds, Soft. No Guarding, Rebound, Tenderness Musculoskeletal: No CVA Tenderness Extremity: Normal Capillary Refill Integumentary: Normal Color, Dry, Warm Neurologic: Alert, Non-verbal at baseline. ED Treatment Course - LABORATORY CBC & Chemistry Diagram: 06/13/17 14:25 06/13/17 14:25 - ADDITIONAL ORDERS Additional order review: Laboratory Results 06/13/17 06/13/17 06/13/17 14:25 14:25 14:25 PT with INR 11.10 INR 0.98 PTT (Actin FS) 31.9 Sodium 141 Potassium 4.3 Chloride 105 Carbon Dioxide 27 Anion Gap 9 BUN 35 H Creatinine 1.6 H Creat Clearance w eGFR 45.27 Random Glucose 103 Calcium 9.5 Total Bilirubin 1.3 H AST 42 H ALT 52 Alkaline Phosphatase 143 H Total Protein 7.4 Albumin 3.9 Blood Type O NEGATIVE Antibody Screen Negative 06/13/17 14:25 RBC 4.74 MCV 92.5 MCHC 32.0 RDW 15.2 MPV 7.4 L Neutrophils % 81.0 Lymphocytes % 9.8 Monocytes % 8.3 Eosinophils % 0.2 Basophils % 0.7 - RADIOLOGY Radiology Studies Ordered: Category Date Time Status ABDOMEN FLAT & UPRIGHT [RAD] Stat Radiology 06/13/17 14:03 Taken CHEST PA & LAT [RAD] Stat Radiology 06/13/17 14:03 Completed - Medications Given in the ED: ED Medications Discontinued Medications Generic Name Dose Route Start Last Admin Trade Name Freq PRN Reason Stop Dose Admin Sodium Chloride 1,000 mls @ 1,000 mls/hr 06/13/17 14:03 06/13/17 14:27 Normal Saline - IV 06/13/17 15:02 1,000 mls/hr ASDIR STA Administration Medical Decision Making - Medical Decision Making 06/13/17 15:29 The patient is a 52 year old male with a history of BPH, urinary retention, MR and non-verbal who presents for evaluation of urinary retention and lack of po intake. Given the patient's physical exam and history, it is likely his current complaints are due to his urinary retention. We will obtain cbc, cmp, coags, type and screen, ua, chest and abdomen plain films to evaluate further. We will get in contact with Dr. Groves regarding further management. 06/13/17 16:07 We discussed the case with Dr. Groves who requested hospitalist admission for medical clearance and procedure tomorrow. Patient will be made NPO and is receiving iv fluids. 06/13/17 16:43 cbc, cmp, chest and abdomen plain films are unremarkable. We discussed with the hospitalist team who accepted the patient for admission. *DC/Admit/Observation/Transfer Diagnosis at time of Disposition: Enlarged prostate with urinary obstruction BPH (benign prostatic hyperplasia) Qualifiers: Lower urinary tract symptom presence: unspecified whether lower urinary tract symptoms present Qualified Code(s): N40.0 - Benign prostatic hyperplasia without lower urinary tract symptoms - Discharge Dispostion Condition at time of disposition: Stable Admit: Yes - Referrals Referrals: Imelda Jo MD [Primary Care Provider] - - Patient Instructions - Post Discharge Activity
--- NOTE | 2017-06-13 16:56 | HP ---
CHIEF COMPLAINT: " Urinary retention " PCP: Urologist: Dr. Mackenzie. HISTORY OF PRESENT ILLNESS: Patient has h/o Fragile X, minimally verbal, hence history obtained from his mother. Patient is an 52-year-old Male presented to the ED accompanied with his mother with the chief complaint of " urinary rentention". Patient's mother states that since a couple of days he has had decreased PO intake and appetite and she noticed abdominal distention with urinary retention. Pt has a chronic collins catheter placed. So she called Dr. Hendrickson this morning who recommended her to come to the ED for a TURP procedure. Patient denies chest pain, sob, cough, palpitation, abdominal pain, nausea, vomiting, fever, chills, rigors, sweating. As per patient's mother, his bowel habits are normal. But noticed that patient went to the bathroom multiple times in the ED so suspicious for diarrhoea. Sleep-Normal. Patient was admitted in 04/2017 with the diagnosis of Acute diverticulitis and was managed conservatively. ER course was notable for: (1) Afebrile, hemodynamically stable. 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, minimally verbal) , BPH and chronic indwelling catheter, Diverticulitis PAST SURGICAL HISTORY: Cholecystectomy Social History: Smoking: Denies Alcohol: Denies Drugs: Denies Family History: Non contributory Allergies Sulfa (Sulfonamide Antibiotics) Allergy (Unknown, Verified 06/13/17 11:40) Rash nitrofurantoin Allergy (Verified 06/13/17 11:41) Rash HOME MEDICATIONS: Home Medications Medication Instructions Recorded NK [No Known Home Medication] 06/13/17 REVIEW OF SYSTEMS CONSTITUTIONAL: Absent: fever, chills, diaphoresis, generalized weakness, malaise, loss of appetite, weight change HEENT: Absent: rhinorrhea, nasal congestion, throat pain, throat swelling, difficulty swallowing, mouth swelling, ear pain, eye pain, visual changes CARDIOVASCULAR: Absent: chest pain, syncope, palpitations, irregular heart rate, lightheadedness , peripheral edema RESPIRATORY: Absent: cough, shortness of breath, dyspnea with exertion, orthopnea, wheezing, stridor, hemoptysis GASTROINTESTINAL: Absent: abdominal pain, abdominal distension, nausea, vomiting, diarrhea, constipation, melena, hematochezia GENITOURINARY: Absent: dysuria, frequency, urgency, hesitancy, hematuria, flank pain, genital pain MUSCULOSKELETAL: Absent: myalgia, arthralgia, joint swelling, back pain, neck pain SKIN: Absent: rash, itching, pallor HEMATOLOGIC/IMMUNOLOGIC: Absent: easy bleeding, easy bruising, lymphadenopathy, frequent infections ENDOCRINE: Absent: unexplained weight gain, unexplained weight loss, heat intolerance, cold intolerance NEUROLOGIC: Absent: headache, focal weakness or paresthesias, dizziness, unsteady gait, seizure, mental status changes, bladder or bowel incontinence PSYCHIATRIC: Absent: anxiety, depression, suicidal or homicidal ideation, hallucinations. PHYSICAL EXAMINATION Vital Signs - 24 hr 06/13/17 11:35 Temperature 99.0 F Pulse Rate 85 Respiratory 20 Rate Blood Pressure 132/87 O2 Sat by Pulse 98 Oximetry (%) GENERAL: Patient is sitting comfortably in bed, Awake, alert, and fully oriented , in no acute distress. HEAD: Normal with no signs of trauma. EYES: EOM intact, no pallor or icterus. EARS, NOSE, THROAT: Ears normal. Moist mucous membranes. NECK: Supple. LUNGS: Breath sounds equal, clear to auscultation bilaterally. No wheezes, and no crackles. No accessory muscle use. HEART: Regular rate and rhythm, normal S1 and S2 with diastolic murmur. ABDOMEN: Soft, nontender, not distended, normoactive bowel sounds, no guarding, no rebound, no masses. No hepatomegaly or splenomegaly. MUSCULOSKELETAL: Normal range of motion at all joints. No bony deformities or tenderness. No CVA tenderness. UPPER EXTREMITIES: 2+ pulses, warm, well-perfused. No cyanosis. No clubbing. No peripheral edema. LOWER EXTREMITIES: 2+ pulses, warm, well-perfused. No calf tenderness. No peripheral edema. NEUROLOGICAL: Cranial nerves II-XII intact. Normal speech. Normal gait. PSYCHIATRIC: Cooperative. Good eye contact. Appropriate mood and affect. SKIN: Warm, dry, normal turgor, no rashes or lesions noted, normal capillary refill. Laboratory Results - last 24 hr 06/13/17 06/13/17 06/13/17 14:25 14:25 14:25 WBC 9.9 RBC 4.74 Hgb 14.0 Hct 43.9 MCV 92.5 MCH 29.6 MCHC 32.0 RDW 15.2 Plt Count 268 MPV 7.4 L Neutrophils % 81.0 Lymphocytes % 9.8 Monocytes % 8.3 Eosinophils % 0.2 Basophils % 0.7 PT with INR 11.10 INR 0.98 PTT (Actin FS) 31.9 Sodium Potassium Chloride Carbon Dioxide Anion Gap BUN Creatinine Creat Clearance w eGFR Random Glucose Calcium Total Bilirubin AST ALT Alkaline Phosphatase Total Protein Albumin Blood Type O NEGATIVE Antibody Screen Negative 06/13/17 14:25 WBC RBC Hgb Hct MCV MCH MCHC RDW Plt Count MPV Neutrophils % Lymphocytes % Monocytes % Eosinophils % Basophils % PT with INR INR PTT (Actin FS) Sodium 141 Potassium 4.3 Chloride 105 Carbon Dioxide 27 Anion Gap 9 BUN 35 H Creatinine 1.6 H Creat Clearance w eGFR 45.27 Random Glucose 103 Calcium 9.5 Total Bilirubin 1.3 H AST 42 H ALT 52 Alkaline Phosphatase 143 H Total Protein 7.4 Albumin 3.9 Blood Type Antibody Screen ASSESSMENT/PLAN: Patient is an 52-year-old Male with significant past medical history of 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 # Urinary retention likely secondary to BPH c/o urinary distention, decreased urine output. Has a chronic indwelling catheter since 04/05/2017 Admit in Med-Surg/Inpatient NPO after midnight IV NS @ 83mls/hr Renal ultrasound: 800 cc of urine. Suggested RN to flush the collins before she changes it. Repeat Bladder scan in 4 hrs after the flush. If he is still retaining, would recommend to change the collins catheter. TURP procedure tomorrow, please change collins catheter post surgery if its not changed today. Dr. Mackenzie consult requested # Urinary tract infection likely secondary to urinary retention UA: 2 + LE; WBC 40, RBC 80 Urine culture pending, change antibiotic as per sensitivity Continue IV Ceftriaxone 2 gm daily # OPAL creatinine 1.6, baseline 1.1 IV Hydration Avoid nephrotoxic drugs repeat creatinine in am. # Diverticulitis-resolved suspicious that he might be having diarrhoea Stool culture # FEN IV NS @ 83mls/hr Electrolytes to be repeated in am NPO after midnight # Prophylaxis For DVT: ON heparin 5000 IU TID after procedure For GI: Not indicated # Code Status: Full Code # Dispo: Admitted in Med-Surg. Duration of stay unknown. Illness, Investigation and Plan of care explained to the patient and his mother. They verbalized understanding. Case discussed with Dr. Uriarte. Visit type - Emergency Visit Emergency Visit: Yes ED Registration Date: 06/13/17 Care time: The patient presented to the Emergency Department on the above date and was hospitalized for further evaluation of their emergent condition. - New Patient This patient is new to me today: Yes Date on this admission: 06/13/17 - Critical Care Critical Care patient: No
[2017-06-13 17:02] LABS: URINE APPEARANCE CLEAR; URINE BILIRUBIN NEGATIVE (NEGATIVE); URINE BLOOD 2+ (NEGATIVE); URINE COLOR YELLOW; URINE GLUCOSE (UA) 1+ (NEGATIVE); URINE KETONE NEGATIVE (NEGATIVE); URINE NITRITE NEGATIVE (NEGATIVE); URINE UROBILINOGEN NEGATIVE mg/dL (0.2-1.0)
[2017-06-13 17:03] LABS: URINE LEUK ESTERASE 2+ (NEGATIVE); URINE PROTEIN 1+ (NEGATIVE)
[2017-06-13 17:09] LABS: URINE MUCUS RARE
--- NOTE | 2017-06-13 17:26 | HP ---
CHIEF COMPLAINT: Poor PO intake; urinary retention PCP: Urology: Dr. 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 Pt is minimally verbal and pt's mother was with him during examination. Pt's mother explains that she talked to Dr. Groves earlier today due to pts poor PO intake over the past 2 days and a decreased urinary output over the past 3 days. Pt's mother reports that Dr. Groves instructed her and the pt to come to the ER to be admitted for a laser procedure to be done tomorrow inhouse. ER course was notable for: (1) CXR - No acute pathology (2) 1L NS (3) UA - 40 WBC and 2+ Leuk esterase PAST MEDICAL HISTORY: BPH with urinary retention s/p indwelling catheter PAST SURGICAL HISTORY: Open cholecystectomy Social History: Smoking:None Alcohol: None Drugs: None Family History: Non-contributory Allergies Sulfa (Sulfonamide Antibiotics) Allergy (Unknown, Verified 06/13/17 11:40) Rash nitrofurantoin Allergy (Verified 06/13/17 11:41) Rash HOME MEDICATIONS: Home Medications Medication Instructions Recorded NK [No Known Home Medication] 06/13/17 REVIEW OF SYSTEMS CONSTITUTIONAL: Absent: fever, chills, diaphoresis, generalized weakness, malaise, loss of appetite, weight change HEENT: Absent: rhinorrhea, nasal congestion, throat pain, throat swelling, difficulty swallowing, mouth swelling, ear pain, eye pain, visual changes CARDIOVASCULAR: Absent: chest pain, syncope, palpitations, irregular heart rate, lightheadedness , peripheral edema RESPIRATORY: Absent: cough, shortness of breath, dyspnea with exertion, orthopnea, wheezing, stridor, hemoptysis GASTROINTESTINAL: Absent: abdominal pain, abdominal distension, nausea, vomiting, diarrhea, constipation, melena, hematochezia GENITOURINARY: Present: Oliguria Absent: dysuria, urgency, hesitancy, hematuria, flank pain, genital pain MUSCULOSKELETAL: Absent: myalgia, arthralgia, joint swelling, back pain, neck pain SKIN: Absent: rash, itching, pallor NEUROLOGIC: Absent: headache, focal weakness or paresthesias, dizziness, unsteady gait, seizure, mental status changes PSYCHIATRIC: Absent: anxiety, depression, suicidal or homicidal ideation, hallucinations. PHYSICAL EXAMINATION Vital Signs - 24 hr 06/13/17 11:35 Temperature 99.0 F Pulse Rate 85 Respiratory 20 Rate Blood Pressure 132/87 O2 Sat by Pulse 98 Oximetry (%) GENERAL: Awake, alert, and fully oriented, in no acute distress. HEENT: NC/AT, No JVD, EOMI, ROSHNI, sclera anicteric LUNGS: CTA bilaterally. No wheezes, no rhonchi and no crackles. No accessory muscle use. HEART: RRR, normal S1 and S2 without murmur, rub or gallop. ABDOMEN: Soft, nontender, not distended, normoactive bowel sounds, no guarding, no rebound, no masses. No hepatomegaly or splenomegaly. MUSCULOSKELETAL: Normal range of motion at all joints. No bony deformities or tenderness. No CVA tenderness. UPPER EXTREMITIES: 2+ pulses, warm, well-perfused. No cyanosis. No clubbing. No peripheral edema. LOWER EXTREMITIES: 2+ pulses, warm, well-perfused. No calf tenderness. No peripheral edema. NEUROLOGICAL: Cranial nerves II-XII intact. Normal speech. Normal gait. PSYCHIATRIC: Cooperative. Good eye contact. Appropriate mood and affect. SKIN: Warm, dry, normal turgor, no rashes or lesions noted, normal capillary refill. Laboratory Results - last 24 hr 06/13/17 06/13/17 06/13/17 14:25 14:25 14:25 WBC 9.9 RBC 4.74 Hgb 14.0 Hct 43.9 MCV 92.5 MCH 29.6 MCHC 32.0 RDW 15.2 Plt Count 268 MPV 7.4 L Neutrophils % 81.0 Lymphocytes % 9.8 Monocytes % 8.3 Eosinophils % 0.2 Basophils % 0.7 PT with INR 11.10 INR 0.98 PTT (Actin FS) 31.9 Sodium Potassium Chloride Carbon Dioxide Anion Gap BUN Creatinine Creat Clearance w eGFR Random Glucose Calcium Total Bilirubin AST ALT Alkaline Phosphatase Total Protein Albumin Urine Color Urine Appearance Urine pH Ur Specific [place] Urine Protein Urine Glucose (UA) Urine Ketones Urine Blood Urine Nitrite Urine Bilirubin Urine Urobilinogen Ur Leukocyte Esterase Urine WBC (Auto) Urine RBC (Auto) Urine Mucus Blood Type O NEGATIVE Antibody Screen Negative 06/13/17 06/13/17 14:25 16:32 WBC RBC Hgb Hct MCV MCH MCHC RDW Plt Count MPV Neutrophils % Lymphocytes % Monocytes % Eosinophils % Basophils % PT with INR INR PTT (Actin FS) Sodium 141 Potassium 4.3 Chloride 105 Carbon Dioxide 27 Anion Gap 9 BUN 35 H Creatinine 1.6 H Creat Clearance w eGFR 45.27 Random Glucose 103 Calcium 9.5 Total Bilirubin 1.3 H AST 42 H ALT 52 Alkaline Phosphatase 143 H Total Protein 7.4 Albumin 3.9 Urine Color Yellow Urine Appearance Clear Urine pH 6.0 Ur Specific [place] 1.015 Urine Protein 1+ H Urine Glucose (UA) 1+ H Urine Ketones Negative Urine Blood 2+ H Urine Nitrite Negative Urine Bilirubin Negative Urine Urobilinogen Negative Ur Leukocyte Esterase 2+ H Urine WBC (Auto) 40 Urine RBC (Auto) 80 Urine Mucus Rare Blood Type Antibody Screen ASSESSMENT/PLAN: 52yo M h/o Fragile X syndrome (independent ADLs and minimally verbal), BPH with chronic indwelling catheter who presented to the ED with mother for decreased urinary volume 1) Urinary Retention --2/2 to BPH --Dr. Groves to do TURP tomorrow AM --Pt is a LOW RISK patient for a LOW RISK procedure --Renal U/S ordered --Bladder scan ordered --800cc Urine; ordered RN to flush collins; if not flushing easily will have to change collins and contact urology about situation --NPO after midnight --Type and screen already done in ED 2) UTI --2/2 to retention --UA noted --F/u urine cx's --Ceftriaxone 2gm qdaily 3) OPAL --Cr 1.6 with baseline of 1.1 --Avoid nephrotoxic agents --Post-obstructive vs. pre-renal in setting of UTI --Trend BMP FEN: Fluids: NS@83cc/hr Electrolyte abnormalities: None currently Nutrition: NPO after midnight PPX DVT - Hold heparin pre-procedure GI - Not indicated currently Code status: Full code Dispo: Admit to M/S for procedure Case discussed with Dr. Chapito Merrill, - Internal Medicine PGY-1 Visit type - Emergency Visit Emergency Visit: Yes ED Registration Date: 06/13/17 Care time: The patient presented to the Emergency Department on the above date and was hospitalized for further evaluation of their emergent condition. - New Patient This patient is new to me today: Yes Date on this admission: 06/15/17 - Critical Care Critical Care patient: No
[2017-06-13] MEDS ORDERED: SODIUM CHLORIDE 1,000 ML IV SCH (17:45)
--- NOTE | 2017-06-13 17:52 | PN ---
Teaching Attending Note Name of Resident: Senthil Merrill ATTENDING PHYSICIAN STATEMENT I saw and evaluated the patient. I reviewed the resident's note and discussed the case with the resident. I agree with the resident's findings and plan as documented. report is by resident, multiple attempts to speak and evaluate patient but was in restroom each attempt. 3x SUBJECTIVE:52yo M with PMH Fragile X, BPH and chronic indwelling catheter came to hospital for decreased UOP x3 days and decreased po intake for the past 2 days. was on multiple courses of abx recently but does not recall which abx. Collins catheter inserted in April 2017. denies CP, SOB, fever, chills, N/V/C/D pt denies diarrhea but has been in the restroom 3x since arrival in the ER OBJECTIVE: Last Vital Signs Temp Pulse Resp BP Pulse Ox 99.0 F 85 20 132/87 98 06/13/17 11:35 06/13/17 11:35 06/13/17 11:35 06/13/17 11:35 06/13/17 11:35 unable to do physical exam ASSESSMENT AND PLAN: 52yo M with PMH Fragile X, BPH and chronic indwelling catheter came to hospital for decreased UOP x3 days and decreased po intake for the past 2 days 1. OPAL- medicine admission. likely due to dehydration and UTI however concerned for retention. check renal and bladder u/s to evaluate. start NS @125cc/H. check urine lytes. 2. UTI- likely due to retention. will start Ceftriaxone 1g. would need collins catheter exchange but will wait to exchange after TURP. f/u Cx 3. Urinary retention-Urology consulted. NPO tonight for TURP in AM. cont flomax 4. Anorexia- possible due to infection. no significant weight loss. encourage po intake. IVF. 5. possible diarrhea- pt denies. no fevers or white count. check stool cx if able to collect them 6. DVT ppx-hep sq
[2017-06-13] MEDS ORDERED: CEFTRIAXONE 2 GM in DEXTROSE 5%-WATER - 100 ML IVPB SCH (20:15)
[2017-06-13] MEDS: CEFTRIAXONE 1 G/50 ML PREMIX 50 ML IVPB SCH (21:06)
[2017-06-14] MEDS ORDERED: LIDOCAINE HCL 2% JELLY 10 ML CARTRIDGE TP ONE
[2017-06-14 07:45] LABS: BASO % 0.5 % (0-2.0); EOS % 1.1 % (0-4.5); HEMATOCRIT 38.1 % (35.4-49); HEMOGLOBIN 12.3 GM/dL (11.7-16.9); LYMPH % 16.8 % (8-40); MCH 29.9 pg (25.7-33.7); MCHC 32.2 g/dl (32.0-35.9); MEAN CELL VOLUME 92.8 fl (80-96); MEAN PLT VOLUME 7.4 fl (7.5-11.1); MONO % 10.5 % (3.8-10.2); NEUT % 71.1 % (42.8-82.8); PLATELET COUNT 239 K/MM3 (134-434); RBC 4.11 M/mm3 (4.00-5.60); WHITE BLOOD COUNT 7.8 K/mm3 (4.0-10.0)
[2017-06-14 08:14] LABS: ANION GAP 9 (8-16); BLOOD UREA NITROGEN 36 mg/dL (7-18); CALCIUM 8.3 mg/dL (8.5-10.1); CHLORIDE 111 mmol/L (98-107); CO2 24 mmol/L (21-32); CREATININE 1.4 mg/dL (0.7-1.3); GLUCOSE,RANDOM 88 mg/dL (74-106); POTASSIUM 3.5 mmol/L (3.5-5.1); SODIUM 144 mmol/L (136-145)
--- NOTE | 2017-06-14 09:02 | PN ---
Physical Exam: SUBJECTIVE: Patient seen and examined this morning. No complaints today. To go to [facility] today; remains NPO. OBJECTIVE: Vital Signs Period Temp Pulse Resp BP Sys/Suarez Pulse Ox Last 24 Hr 97.8 F-99.0 F 79-99 18-20 116-132/68-87 97-99 GENERAL: Awake, alert, and fully oriented, in no acute distress. HEENT: NC/AT, No JVD, EOMI, ROSHNI, sclera anicteric LUNGS: CTA bilaterally. No wheezes, no rhonchi and no crackles. No accessory muscle use. HEART: RRR, normal S1 and S2 without murmur, rub or gallop. ABDOMEN: Soft, nontender, nondistended, normoactive bowel sounds, no guarding, no rebound, prior suprapubic distention resolved now. No hepatomegaly MUSCULOSKELETAL: Normal range of motion at all joints. No bony deformities or tenderness. No CVA tenderness. EXTREMITIES: 2+ pulses, warm, well-perfused. No peripheral edema. No calf tenderness NEUROLOGICAL: Non-focal exam. SKIN: Warm, dry, slightly erythematous lower extremities, however no overt rash developing Laboratory Results - last 24 hr 06/13/17 06/13/17 06/13/17 14:25 14:25 14:25 WBC 9.9 RBC 4.74 Hgb 14.0 Hct 43.9 MCV 92.5 MCH 29.6 MCHC 32.0 RDW 15.2 Plt Count 268 MPV 7.4 L Neutrophils % 81.0 Lymphocytes % 9.8 Monocytes % 8.3 Eosinophils % 0.2 Basophils % 0.7 PT with INR 11.10 INR 0.98 PTT (Actin FS) 31.9 Sodium Potassium Chloride Carbon Dioxide Anion Gap BUN Creatinine Creat Clearance w eGFR Random Glucose Calcium Total Bilirubin AST ALT Alkaline Phosphatase Total Protein Albumin Urine Color Urine Appearance Urine pH Ur Specific Bison Urine Protein Urine Glucose (UA) Urine Ketones Urine Blood Urine Nitrite Urine Bilirubin Urine Urobilinogen Ur Leukocyte Esterase Urine WBC (Auto) Urine RBC (Auto) Urine Mucus Blood Type O NEGATIVE Antibody Screen Negative 06/13/17 06/13/17 06/14/17 14:25 16:32 06:00 WBC 7.8 RBC 4.11 Hgb 12.3 D Hct 38.1 MCV 92.8 MCH 29.9 MCHC 32.2 RDW 15.0 Plt Count 239 MPV 7.4 L Neutrophils % 71.1 Lymphocytes % 16.8 D Monocytes % 10.5 H Eosinophils % 1.1 D Basophils % 0.5 PT with INR INR PTT (Actin FS) Sodium 141 Potassium 4.3 Chloride 105 Carbon Dioxide 27 Anion Gap 9 BUN 35 H Creatinine 1.6 H Creat Clearance w eGFR 45.27 Random Glucose 103 Calcium 9.5 Total Bilirubin 1.3 H AST 42 H ALT 52 Alkaline Phosphatase 143 H Total Protein 7.4 Albumin 3.9 Urine Color Yellow Urine Appearance Clear Urine pH 6.0 Ur Specific Bison 1.015 Urine Protein 1+ H Urine Glucose (UA) 1+ H Urine Ketones Negative Urine Blood 2+ H Urine Nitrite Negative Urine Bilirubin Negative Urine Urobilinogen Negative Ur Leukocyte Esterase 2+ H Urine WBC (Auto) 40 Urine RBC (Auto) 80 Urine Mucus Rare Blood Type Antibody Screen 06/14/17 06:00 WBC RBC Hgb Hct MCV MCH MCHC RDW Plt Count MPV Neutrophils % Lymphocytes % Monocytes % Eosinophils % Basophils % PT with INR INR PTT (Actin FS) Sodium 144 Potassium 3.5 Chloride 111 H Carbon Dioxide 24 Anion Gap 9 BUN 36 H Creatinine 1.4 H Creat Clearance w eGFR Random Glucose 88 Calcium 8.3 L Total Bilirubin AST ALT Alkaline Phosphatase Total Protein Albumin Urine Color Urine Appearance Urine pH Ur Specific Bison Urine Protein Urine Glucose (UA) Urine Ketones Urine Blood Urine Nitrite Urine Bilirubin Urine Urobilinogen Ur Leukocyte Esterase Urine WBC (Auto) Urine RBC (Auto) Urine Mucus Blood Type Antibody Screen Active Medications Generic Name Dose Route Start Last Admin Trade Name Freq PRN Reason Stop Dose Admin Heparin Sodium (Porcine) 5,000 unit 06/14/17 22:00 Heparin - SQ TID ANDI Sodium Chloride 1,000 mls @ 83 mls/hr 06/13/17 17:45 06/13/17 19:38 Normal Saline - IV 83 mls/hr ASDIR ANDI Administration CEFTRIAXONE 1 G/50 ML PREMIX 50 mls @ 100 mls/hr 06/13/17 20:15 06/13/17 21: 06 Ceftriaxone 1 Gm-D5w Bag IVPB 100 mls/hr DAILY ANDI Administration ASSESSMENT/PLAN: 52yo M h/o Fragile X syndrome (independent ADLs and minimally verbal), BPH with chronic indwelling catheter who presented to the ED with mother for decreased urinary volume 1) Urinary Retention --2/2 to BPH --Dr. Groves to do TURP today --Pt is a LOW RISK patient for a LOW RISK procedure --Renal U/S ordered --Hydronephrosis b/l noted due to obstructive processes --Pt's collins was change last night with success in 16 Indonesian new collins; pt drained 1300cc of clear/yellow urine afterwards --NPO until procedure; can advance diet afterwards 2) UTI --2/2 to retention --UA noted --F/u urine cx's --Ceftriaxone 2gm qdaily Day 2 3) OPAL --Cr improving in setting of resolved collins obstruction; continue to trend --Avoid nephrotoxic agents --Post-obstructive most likely cause FEN: Fluids: NS@83cc/hr; can most likely d/c fluid post-procedure Electrolyte abnormalities: None currently Nutrition: NPO until procedure then can advance diet afterwards PPX DVT - Hold heparin pre-procedure GI - Not indicated currently Code status: Full code Dispo: Most likely d/c tomorrow with outpatient antibiotics for UTI Case discussed with Dr. Chapito Merrill, DO - Internal Medicine PGY-1 Visit type - Emergency Visit Emergency Visit: No - New Patient This patient is new to me today: No - Critical Care Critical Care patient: No
[2017-06-14] MEDS: CEFTRIAXONE 1 G/50 ML PREMIX 50 ML IVPB SCH (09:41)
--- NOTE | 2017-06-14 10:31 | CON.GU ---
Consult - History of Present Illness Chief Complaint: urinary retention History of Present Illness: 52 yo male with persistent urinary retention. Pt scheduled for prostate procedure in office but now admitted with abdominal pain, weakness. To have TURP today since medically clear - Past Medical History CATERING COOK: Yes: Other (Fragile X/mild mental retardation, highly functional but mostly nonverbal) Cardio/Vascular: Yes: Mitral Insufficiency (mild MVP) Gastrointestinal: Yes: Constipation - Past Surgical History Past Surgical History: Yes: Cholecystectomy (open, many years ago). No: Colonoscopy - Alcohol/Substance Use Hx Alcohol Use: No History of Substance Use: reports: None - Smoking History Smoking history: Never smoked Have you smoked in the past 12 months: No Aproximately how many cigarettes per day: 0 - Social History Usual Living Arrangement: With Parent Home Medications - Allergies Allergies/Adverse Reactions: Allergies Allergy/AdvReac Type Severity Reaction Status Date / Time Sulfa (Sulfonamide Allergy Unknown Rash Verified 06/13/17 11:40 Antibiotics) nitrofurantoin Allergy Rash Verified 06/13/17 11:41 - Home Medications Home Medications: Ambulatory Orders NK [No Known Home Medication] 06/13/17 Family Disease History - Family Disease History Family Disease History: Diabetes: Sister ( from DM complications) Physical Exam- Vital Signs: Vital Signs Temperature 97.9 F 06/14/17 05:49 Pulse Rate 99 H 06/14/17 05:49 Respiratory Rate 20 06/14/17 05:49 Blood Pressure 116/74 06/14/17 05:49 O2 Sat by Pulse Oximetry (%) 97 06/13/17 22:00 Labs: CBC, BMP 06/14/17 06:00 06/14/17 06:00 Problem List - Problems (1) Urinary retention due to benign prostatic hyperplasia Assessment/Plan: plan for TURP today Code(s): N40.1 - BENIGN PROSTATIC HYPERPLASIA WITH LOWER URINARY TRACT SYMP; R33.8 - OTHER RETENTION OF URINE (2) BPH (benign prostatic hyperplasia) Code(s): N40.0 - BENIGN PROSTATIC HYPERPLASIA WITHOUT LOWER URINRY TRACT SYMP Qualifiers: Lower urinary tract symptom presence: unspecified whether lower urinary tract symptoms present Qualified Code(s): N40.0 - Benign prostatic hyperplasia without lower urinary tract symptoms
[2017-06-14] MEDS ORDERED: LIDOCAINE HCL 2% JELLY 10 ML CARTRIDGE ONE (12:06)
[2017-06-14] MEDS ORDERED: fentaNYL CITRATE 250 MCG/5 ML VIAL ONE (12:28)
[2017-06-14] MEDS ORDERED: PROPOFOL 20 ML ONE ×2 (12:28→12:34)
--- NOTE | 2017-06-14 13:29 | OP ---
Operative Note - Note: Operative Date: 06/14/17 Pre-Operative Diagnosis: BPH with retention Operation: bipolar TURP/TURVP Findings: trilobar hyperplasia Post-Operative Diagnosis: Same as Pre-op Surgeon: Senthil Groves Anesthesia: General Specimens Removed: prostate chips Estimated Blood Loss (mls): 5 Drains & Tubes with Location: 22 fr collins Operative Report Dictated: Yes
[2017-06-14] MEDS ORDERED: DEXAMETHASONE SOD PHOSPHATE 4 MG/1 ML VIAL ONE (13:32)
[2017-06-14] MEDS: SODIUM CHLORIDE 1,000 ML IV SCH (13:56)
[2017-06-14] MEDS ORDERED: ONDANSETRON 4 MG/2 ML VIAL ONE (14:03)
[2017-06-14] MEDS ORDERED: ONDANSETRON 4 MG/2 ML VIAL IVPUSH ONE (14:16)
--- NOTE | 2017-06-14 14:18 | OP ---
DATE OF OPERATION: 06/14/2017 PREOPERATIVE DIAGNOSIS: Urinary retention. POSTOPERATIVE DIAGNOSIS: Urinary retention. PROCEDURE: Cystoscopy, bipolar transurethral vaporization of the prostate and transurethral resection of the prostate. SURGEON: Senthil Groves MD INDICATION: Patient is a 52-year-old male with a history of urinary retention and failed multiple voiding trials. After reviewing treatment options with the mother as the patient is unable to sign consent since he has fragile X syndrome, they elected to undergo bipolar transurethral resection of the prostate and transurethral vaporization of the prostate. Risks, benefits and alternatives already had been discussed previously in the office. DESCRIPTION OF PROCEDURE: After informed consent obtained, patient taken to the OR, placed supine on the operating table. After cardiac monitoring had been administered and general anesthesia established, he was prepped and draped in the dorsal lithotomy position. The Mejia catheter was removed and a 26-sheath resectoscope was inserted into the urethra without difficulty. Anterior urethra was normal. Prostatic urethra was 4 cm, visually occlusive with a large median bar. The bladder was visualized. No tumors or stones noted in the bladder. At this point, the loop was first used to create a channel starting at the bladder neck and ending approximately 1 cm before the verumontanum to minimize incontinence. The prostate chips were removed with the [employer] evacuator and then using the button electrode the prostatic urethra was then opened up further using vaporization until a wide-open channel was created. With the resectoscope situated just past the verumontanum looking towards the bladder, a wide-open channel was seen. All bleeding sites were fulgurated. Resectoscope was then removed and a 22-English Mejia was then placed to straight drainage. Clear urine was retrieved. Patient was woken from anesthesia and transferred to recovery in stable condition. There were no complications. Estimated blood loss was minimal. Candice [id number]
--- NOTE | 2017-06-14 14:30 | PN ---
Teaching Attending Note Name of Resident: Senthil Merrill ATTENDING PHYSICIAN STATEMENT I saw and evaluated the patient. I reviewed the resident's note and discussed the case with the resident. I agree with the resident's findings and plan as documented. SUBJECTIVE:denies pain, SOb, fever, chills, N/V/C/D. states he does not have diarrhea but as per mother he had 2 soft BM yesterday OBJECTIVE: Last Vital Signs Temp Pulse Resp BP Pulse Ox 97.9 F 88 15 124/85 98 06/14/17 13:37 06/14/17 14:05 06/14/17 14:05 06/14/17 14:05 06/14/17 14:05 General +diaphoretic, flat affect CV S1 S2 RRR no murmur/rub/gallop Lungs CTA B/L no wheezing/rales/rhonchi Abdomen soft guarding throughout, non tender no distention no CVA tenderness Extremities non pitting edema of B/L feet ASSESSMENT AND PLAN: 52yo M with PMH Fragile X, BPH and chronic indwelling catheter came to hospital for decreased UOP x3 days and decreased po intake for the past 2 days 1. OPAL-likely due to UTI and obstruction. renal u/s showing B/L hydro and enlarged prostate. cont IVF hydration. avoid nephrotoxic agents. renal dose medications. 2. UTI- likely due to retention. was recently on bacrtim and developed rash and switch to macrobid which he also developed rash. he was started on keflex day prior to admission. cont Ceftriaxone 1g day 2. f/u Cx. collins exchanged yesterday. f/u Cx 3. Urinary retention->800 cc retention. collins exchanged yesterday with >1L output. NPO for TURP today. cont flomax 4. Anorexia- possible due to infection. no significant weight loss. encourage po intake. IVF. 5. possible diarrhea- pt denies. no fevers or white count. check stool cx if able to collect them 6. DVT ppx-hep sq 7. can likely be d/c in AM
[2017-06-14] MEDS ORDERED: HEPARIN NA (PORCINE) 5,000 UNITS/ML 1ML VIAL SQ SCH (22:00)
[2017-06-15] MEDS: SODIUM CHLORIDE 1,000 ML IV SCH ×3 (02:01→18:46)
[2017-06-15 08:32] LABS: CHLORIDE 109 mmol/L (98-107); POTASSIUM 3.3 mmol/L (3.5-5.1); SODIUM 144 mmol/L (136-145)
[2017-06-15 08:53] LABS: ANION GAP 10 (8-16); BLOOD UREA NITROGEN 25 mg/dL (7-18); CALCIUM 8.1 mg/dL (8.5-10.1); CO2 25 mmol/L (21-32); CREATININE 0.8 mg/dL (0.7-1.3); GLUCOSE,RANDOM 85 mg/dL (74-106)
[2017-06-15] MEDS ORDERED: POTASSIUM CHLORIDE TABS 20 MEQ TABLET.ER (FP) PO ONE (09:50)
[2017-06-15] MEDS: CEFTRIAXONE 1 G/50 ML PREMIX 50 ML IVPB SCH (10:31)
[2017-06-15] MEDS ORDERED: SODIUM CHLORIDE 0.9% 1000 ML INFUS.BAG IV ONE (15:18)
--- NOTE | 2017-06-15 15:50 | PN ---
Progress Note (short form) - Note Progress Note: Post op day#1.S/P Cystoscopy with TURP under GA uneventful.Patient stable.No any anesthesia related problem.Patient DC from the anesthesia care.
--- NOTE | 2017-06-15 18:50 | PN ---
Physical Exam: SUBJECTIVE: Patient seen and examined in morning. No complaints, no events overnight. S/p TURP day 1 today OBJECTIVE: Vital Signs Period Temp Pulse Resp BP Sys/Suarez Pulse Ox Last 24 Hr 97.9 F-98.1 F 79-84 18-79 93-123/61-89 97 GENERAL: Awake, alert, and fully oriented, in no acute distress. HEENT: NC/AT, No JVD, EOMI, ROSHNI, sclera anicteric LUNGS: CTA bilaterally. No wheezes, no rhonchi and no crackles. No accessory muscle use. HEART: RRR, normal S1 and S2 without murmur, rub or gallop. ABDOMEN: Soft, nontender, nondistended, normoactive bowel sounds, no guarding, no rebound No hepatomegaly MUSCULOSKELETAL: No CVA tenderness. EXTREMITIES: 2+ pulses, warm, well-perfused. No peripheral edema. No calf tenderness SKIN: Warm, dry, slightly erythematous lower extremities Laboratory Results - last 24 hr 06/15/17 06:35 Sodium 144 Potassium 3.3 L Chloride 109 H Carbon Dioxide 25 Anion Gap 10 BUN 25 H D Creatinine 0.8 D Random Glucose 85 Calcium 8.1 L Active Medications Generic Name Dose Route Start Last Admin Trade Name Freq PRN Reason Stop Dose Admin Fentanyl 25 mcg 06/14/17 13:43 Sublimaze Injection - IVPUSH [id number] PRN PAIN-PACU ORDER X 4 DOSES ONLY CEFTRIAXONE 1 G/50 ML PREMIX 50 mls @ 100 mls/hr 06/15/17 10:00 06/15/17 10: 31 Ceftriaxone 1 Gm-D5w Bag IVPB 100 mls/hr DAILY ANDI Administration Sodium Chloride 1,000 mls @ 83 mls/hr 06/14/17 13:56 06/15/17 18:46 Normal Saline - IV 83 mls/hr ASDIR ANDI Administration ASSESSMENT/PLAN: 52yo M h/o 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 Groves, pt can keep collins in until a follow-up appointment with him (preferably 06/19) --Pt's mother and pt have been caring for collins and do not need any aid --Renal U/S ordered --Hydronephrosis b/l noted due to obstructive process 2) UTI --2/2 to retention --UA noted --F/u urine cx's --Ceftriaxone 2gm qdaily Day 3 --Can switch to Keflex BID for the next 5 days (end date 06/20/17) 3) OPAL --Cr improved in setting of resolved collins obstruction; continue to trend --Avoid nephrotoxic agents --Post-obstructive most likely cause FEN: Fluids: None needed Electrolyte abnormalities: None currently Nutrition: regular diet PPX DVT - Early ambulation GI - Not indicated currently Code status: Full code Dispo: Can d/c today? Case discussed with Dr. Yany Merrill, DO - Internal Medicine PGY-1 Visit type - Emergency Visit Emergency Visit: No - New Patient This patient is new to me today: No - Critical Care Critical Care patient: No
--- NOTE | 2017-06-15 19:57 | PN ---
Teaching Attending Note Name of Resident: Senthil Merrill ATTENDING PHYSICIAN STATEMENT I saw and evaluated the patient. I reviewed the resident's note and discussed the case with the resident. I agree with the resident's findings and plan as documented. SUBJECTIVE: Patient has no complaints. OBJECTIVE: Vital Signs Period Temp Pulse Resp BP Sys/Suarez Pulse Ox Last 24 Hr 97.9 F-98.1 F 79-84 18-79 93-123/61-89 97 HEART: S1S2, RRR LUNGS: Clear ABDOMEN: Soft, non-tender, non-distended, normal BS EXTREMITIES: No edema Laboratory Results - last 24 hr 06/15/17 06:35 Sodium 144 Potassium 3.3 L Chloride 109 H Carbon Dioxide 25 Anion Gap 10 BUN 25 H D Creatinine 0.8 D Random Glucose 85 Calcium 8.1 L Current Medications Generic Name Dose Route Start Last Admin Trade Name Freq PRN Reason Stop Dose Admin Fentanyl 25 mcg 06/14/17 13:43 Sublimaze Injection - IVPUSH [id number] PRN PAIN-PACU ORDER X 4 DOSES ONLY CEFTRIAXONE 1 G/50 ML PREMIX 50 mls @ 100 mls/hr 06/15/17 10:00 06/15/17 10: 31 Ceftriaxone 1 Gm-D5w Bag IVPB 100 mls/hr DAILY ANDI Administration Sodium Chloride 1,000 mls @ 83 mls/hr 06/14/17 13:56 06/15/17 18:46 Normal Saline - IV 83 mls/hr ASDIR ANDI Administration ASSESSMENT AND PLAN: This is a 52 yo man with history of Fragile X syndrome, BPH, chronic indwelling catheter who presented to the ED with decreased urine output and decreased oral intake. 1. Acute kidney injury secondary to obstructive uropathy from BPH - Improved - s/p TURP 06/14 2. UTI - Patient developed rash with Bactrim and Macrobid - On Rocephin - discharge on Keflex 3. Disposition - Plan for discharge home today
[2017-06-16 06:01] VITALS: TEMP 98.2
[2017-06-16] MEDS: SODIUM CHLORIDE 1,000 ML IV SCH (06:14)
[2017-06-16 08:18] LABS: ANION GAP 7 (8-16); BLOOD UREA NITROGEN 19 mg/dL (7-18); CALCIUM 7.6 mg/dL (8.5-10.1); CHLORIDE 107 mmol/L (98-107); CO2 27 mmol/L (21-32); CREATININE 0.8 mg/dL (0.7-1.3); GLUCOSE,RANDOM 90 mg/dL (74-106); POTASSIUM 3.5 mmol/L (3.5-5.1); SODIUM 141 mmol/L (136-145)
[2017-06-16] MEDS: CEFTRIAXONE 1 G/50 ML PREMIX 50 ML IVPB SCH (09:34)
--- NOTE | 2017-06-16 09:42 | DS ---
Physical Exam: SUBJECTIVE: Patient seen and examined. no complaints. denies CP, SOB, fever, chills, N/V/C/D OBJECTIVE: Vital Signs Period Temp Pulse Resp BP Sys/Suarez Pulse Ox Last 24 Hr 97.9 F-98.3 F 68-84 16-79 93-114/61-79 97 PHYSICAL EXAM GENERAL: The patient is awake, alert, and fully oriented, in no acute distress. HEAD: Normal with no signs of trauma. EYES: PERRL, extraocular movements intact, sclera anicteric, conjunctiva clear. ENT: Ears normal, nares patent, oropharynx clear without exudates, moist mucous membranes. NECK: Trachea midline, full range of motion, supple. LUNGS: Breath sounds equal, clear to auscultation bilaterally, no wheezes, no crackles, no accessory muscle use. HEART: Regular rate and rhythm, S1, S2 without murmur, rub or gallop. ABDOMEN: Soft, nontender, nondistended, normoactive bowel sounds, no guarding, no rebound, no hepatosplenomegaly, no masses. EXTREMITIES: 2+ pulses, warm, well-perfused, no edema. NEUROLOGICAL: Cranial nerves II through XII grossly intact. Normal speech, gait not observed. PSYCH: Normal mood, normal affect. SKIN: Warm, dry, normal turgor, no rashes or lesions noted. LABS Laboratory Results - last 24 hr 06/16/17 06:00 Sodium 141 Potassium 3.5 Chloride 107 Carbon Dioxide 27 Anion Gap 7 L BUN 19 H D Creatinine 0.8 Random Glucose 90 Calcium 7.6 L HOSPITAL COURSE: Date of Admission:06/13/17 Date of Discharge: 06/16/17 Admitting diagnosis: BPH, UTI, OPAL Procedures: TURP Pre hospital course 52yo M with history of Fragile X syndrome (independent in ADLs, minimally verbal ), BPH and chronic indwelling catheter presents to the ER today due to decreased urinary output. Pt is minimally verbal and pt's mother was with him during examination. Pt's mother explains that she talked to Dr. Groves earlier today due to pts poor PO intake over the past 2 days and a decreased urinary output over the past 3 days. Pt's mother reports that Dr. Groves instructed her and the pt to come to the ER to be admitted for a laser procedure to be done tomorrow inhouse. subsequent hospital course Admitted to medicine. Urine showing retention >800cc. collins exchanged. started on Ceftriaxone. went for TURP and tolerated well. Course complicated with hypotension which responded well to IVF. OPAL resolved. d/c home on keflex to complete 7 day course. was d/c with collins in place and to f/u with UROLOGY on sunday for removal. Spoke with mother, Una Salazar, all questions answered. verbalized understanding and agreement with plan. Minutes to complete discharge: 45 Discharge Summary Reason For Visit: BENIGN PROSTATE HYPERPLASIA W URINARY OB Current Active Problems UTI (urinary tract infection) (Acute) Urinary retention due to benign prostatic hyperplasia (Acute) Condition: Improved - Instructions Diet, Activity, Other Instructions: Recommendations/Information You were hospitalized because you were retaining urine. This was caused by your enlarged prostate and your catheter being obstructed You were also found to have a urinary tract infection during your hospital work- up Drink plenty of water. If you develop fevers or chills please contact your medical doctor or return to the ER for further evaluation MEDICATION CHANGES You will be give Keflex 500mg to take TWICE per day. Take until completed even if your symptoms go away. Your first dose will be tonight. --If you develop a body rash, swelling of the mouth, or trouble breathing on this antibiotic please take one over the counter benadryl and seek medical attention immediately as this can be another allergic reaction FOLLOW-UPS Please follow-up with your general medical doctor Please follow-up with Dr. Groves in his office on SundayJune 19 --He will be evaluate you to have your collins removed Referrals: Senthil Groves MD [Staff Physician] - Imelda Jo MD [Primary Care Provider] - Disposition: HOME - Home Medications Comprehensive Discharge Medication List: Ambulatory Orders Cephalexin [Keflex] 500 mg PO BID #7 capsule 06/16/17 This patient is new to me today: No Emergency Visit: Yes ED Registration Date: 06/13/17 Care time: The patient presented to the Emergency Department on the above date and was hospitalized for further evaluation of their emergent condition. Critical Care patient: No - Discharge Referral Referred to [facility] Med P.C.: No
[2017-06-16] MEDS ORDERED: CEPHALEXIN MONOHYDRATE 500 MG CAPSULE (UD) PO ONE (10:00)
[2017-06-16 11:18] VITALS: BP 110/73; PULSE 73
--- NOTE | 2017-06-18 15:33 | PATH ---
Surgical Pathology Report Patient Name: MARINA PERALES Med. Rec. #: [id number] /Age/Gender: 1965 (Age: 52) / M Account: [id number] Location: [facility] MED/SURG Taken: 06/14/2017 Received: 06/15/2017 Reported: 06/18/2017 Physicians: Candice Hendrix M.D. Specimen(s) Received TISSUE OF PROSTATE Clinical History BPH with urinary retention Final Diagnosis PROSTATE, TRANSURETHRAL RESECTION OF PROSTATE: BENIGN PROSTATIC TISSUE WITH FOCAL ACUTE AND CHRONIC INFLAMMATION, ACINAR ATROPHY, CYSTIC CHANGE, SQUAMOUS METAPLASIA, BASAL CELL HYPERPLASIA, AND STROMAL HYPERPLASIA. Electronically Signed Pily Coughlin M.D. Gross Description Received in formalin labeled "prostate tissue," is a 5 g, 6.0 x 4.8 x 0.5 cm aggregate of multiple coronado, irregular portions of firm to rubbery tissue, consistent with prostate tissue. The specimen is entirely submitted in 6 cassettes. /06/15/2017 saudi06/15/2017
== END 2017-06-16 12:30 | disposition home or self-care (01) | DRG 713 ==
LOC: JER 11:34 → JERBED 16:44 → J7W 22:09
PROVIDERS: ADMIT Internal Medicine; ATTEND Internal Medicine
PROC: 0V508ZZ Destruction of Prostate, Via Natural or Artificial Opening Endoscopic (ICD-10-PCS; 2017-06-14)
PROC: 0VB08ZZ Excision of Prostate, Via Natural or Artificial Opening Endoscopic (ICD-10-PCS; principal; 2017-06-14 10:30)
DX: N40.1 Benign prostatic hyperplasia with lower urinary tract symptoms (principal); N17.9 Acute kidney failure, unspecified; N13.6 Pyonephrosis; R33.8 Other retention of urine; Q99.2 Fragile X chromosome; I34.0 Nonrheumatic mitral (valve) insufficiency; R63.0 Anorexia; Z68.27 Body mass index [BMI] 27.0-27.9, adult; E86.0 Dehydration; E87.8 Other disorders of electrolyte and fluid balance, not elsewhere classified
CPT/HCPCS: 36415; 71046-TC; 74019-TC; 76775-TC; 76856-TC; 80048; 80053; 81003; 81015; 85025; 85610; 85730; 86850; 86900; 86901; 87086; 88307-TC; 94760; 99281-25; 99284-25

== ENCOUNTER 2018-02-19 06:56 | Day surgery (SDC) | payer OTHER ==
[2018-02-18 12:48] VITALS: BMI 29.0
[2018-02-19 10:39] VITALS: BP 110/75; PULSE 75; TEMP 97.9
== END 2018-02-19 09:25 | disposition home or self-care (01) ==
LOC: JASU-ENDO 06:56
PROVIDERS: ATTEND Internal Medicine Gastroenterology
PROC: 0DJD8ZZ Inspection of Lower Intestinal Tract, Via Natural or Artificial Opening Endoscopic (ICD-10-PCS; principal; 2018-02-19 08:00)
DX: Z12.11 Encounter for screening for malignant neoplasm of colon (principal); K57.30 Diverticulosis of large intestine without perforation or abscess without bleeding

== ENCOUNTER 2018-10-24 15:40 | Emergency (ER) | payer OTHER ==
[2018-10-24 15:58] VITALS: BMI 27.6
[2018-10-24 16:26] LABS: BASO % 1.2 % (0-2.0); HEMATOCRIT 30.9 % (35.4-49); HEMOGLOBIN 9.4 GM/dl (11.7-16.9); LYMPH % 36.4 % (8-40); MCH 21.7 pg (25.7-33.7); MCHC 30.3 g/dl (32.0-35.9); MEAN CELL VOLUME 71.5 fl (80-96); MEAN PLT VOLUME 7.3 fl (7.5-11.1); MONO % 7.5 % (3.8-10.2); NEUT % 53.9 % (42.8-82.8); PLATELET COUNT 434 K/MM3 (134-434); RBC 4.33 M/mm3 (4.00-5.60); RDW 17.2 % (11.9-15.9); WHITE BLOOD COUNT 6.1 K/mm3 (4.0-10.8)
[2018-10-24 16:28] LABS: ADD RBC MORPHOLOGY YES
[2018-10-24 16:36] LABS: INR 1.22 (0.82-1.09); PROTHROMBIN TIME (PATIENT) 13.2 SEC (10.2-13.0)
[2018-10-24 16:41] LABS: ALBUMIN 3.9 g/dl (3.4-5.0); BILIRUBIN,TOTAL 0.4 mg/dl (0.2-1); CALCIUM 9.1 mg/dl (8.5-10); CREATININE 0.8 mg/dl (0.55-1.3); POTASSIUM 3.8 mmol/L (3.5-5.1); TOT PROT 6.9 g/dl (6.4-8.2)
--- NOTE | 2018-10-24 17:00 | PDOC ---
Documentation entered by Micki Hernandez SCRIBE, acting as scribe for Martina Rivers MD. Martina Rivers MD: This documentation has been prepared by the Mary osman Daisy, SCRIBE, under my direction and personally reviewed by me in its entirety. I confirm that the documentation accurately reflects all work, treatment, procedures, and medical decision making performed by me. History of Present Illness - General Chief Complaint: Abnormal Lab Results (Outside) Stated Complaint: LOW HEMOGLOBIN Time Seen by Provider: 10/24/18 15:49 History Source: Patient Exam Limitations: No Limitations - History of Present Illness Initial Comments: 10/24/18 16:32 The patient is a 53YOM with a PMH of MVP, BPH, urinary retention, GERD and intellectual disability who presents to the ER sent in by CARLA Schaeffer from [facility]. Patient's history is limited 2/2 clinical condition. All history was provided by mother at bedside. Mother reports they saw CARLA Schaeffer for an annual physical exam yesterday and was called over the phone today to come to the ER. CARLA Schaeffer faxed over blood work indicating that the hemoglobin dropped to 9.3 and the hematocrit is 32.3, when it was normal 1 year ago. Patient reportedly had a colonoscopy a year ago, which was normal. Mother denies noticing any rectal bleeding or hematuria, abdominal pain, complaints of SOB or dizziness or skin discoloration/pallor. Mother notes the patient does not typically complain about pain. Allergies: NKA 10/24/18 17:35 Past History - Past Medical History Allergies/Adverse Reactions: Allergies Allergy/AdvReac Type Severity Reaction Status Date / Time Sulfa (Sulfonamide Allergy Unknown Rash Verified 10/24/18 15:42 Antibiotics) nitrofurantoin Allergy Rash Verified 10/24/18 15:42 Home Medications: Ambulatory Orders Cholecalciferol (Vitamin D3) [Vitamin D3] 1,000 unit PO DAILY 02/18/18 Multivitamin [Multiple Vitamins] 1 each PO DAILY 02/18/18 Cardiac Disorders: Yes (MVP) COPD: No GI Disorders: Yes (DIVERTICULITIS) Disorders: Yes (BPH, URINARY RETENTION) Psychiatric Problems: Yes (pt mom not sure of what diagnosis .) Other medical history: MENTAL RETARDATION - Surgical History Abdominal Surgery: No Appendectomy: No Cardiac Surgery: No Cholecystectomy: Yes Lung Surgery: No Neurologic Surgery: No Orthopedic Surgery: No - Suicide/Smoking/Psychosocial Hx Smoking Status: No Smoking History: Never smoked Have you smoked in the past 12 months: No Number of Cigarettes Smoked Daily: 0 Hx Alcohol Use: No Drug/Substance Use Hx: No Substance Use Type: None Hx Substance Use Treatment: No Review of Systems - Review of Systems Able to Perform ROS?: No (intellectual disability) *Physical Exam - Vital Signs Last Vital Signs Temp Pulse Resp BP Pulse Ox 98.9 F 81 16 114/80 100 10/24/18 15:40 10/24/18 15:40 10/24/18 15:40 10/24/18 15:40 10/24/18 15:40 - Physical Exam Comments: 10/24/18 16:28 General: (+) Alert and follows commands, interactive, minimally verbal HEENT: NCAT, PERRL, EOMI, clear conjunctiva, anicteric, moist mucus membranes, clear oropharynx, no oral lesions.. Neck: neck supple, FROM Resp: CTAB, normal and even respirations, no respiratory distress CVS: RRR, no murmurs, 2+ peripheral pulses throughout, no peripheral edema Abdomen: soft, NTND, no rebound or guarding. No CVAT. (+) Abdominal cholcystectomy scar, well healing. Back: nontender, normal inspection and ROM Rectal exam: (+) prostate enlarged. No bleeding. (+) Soft brown stool in the rectum. no melana, no hematochezia. no masses. MSK: no edema, GERENE x4, ROM intact. No clubbing or cyanosis. normal bulk and tone. Neuro: alert, oriented appropriately; no focal neurologic deficits Skin: warm and well perfused, cap refill <2 sec, normal color 10/24/18 17:20 Heart Score/ECG Review #1 ECG reviewed & interpreted by me at: 16:55 General ECG Interpretation: Sinus Rhythm, Normal Rate, Normal Intervals, No acute ischemic changes 10/24/18 17:26 EKG normal sinus rhythm at 66 bpm, no interval abnormalities, narrow QRS, ST and T wave segments and morphology normal. ED Treatment Course - LABORATORY CBC & Chemistry Diagram: 10/24/18 16:05 10/24/18 16:05 - ADDITIONAL ORDERS Additional order review: Laboratory Results 10/24/18 10/24/18 10/24/18 16:22 16:05 16:05 PT with INR 13.2 H INR 1.22 Sodium 138 Potassium 3.8 Chloride 106 Carbon Dioxide 24 Anion Gap 8 BUN 26 H Creatinine 0.8 Est GFR (CKD-EPI)AfAm 116.56 Est GFR (CKD-EPI)NonAf 100.57 Random Glucose 99 Calcium 9.1 Total Bilirubin 0.4 AST 17 ALT 17 Alkaline Phosphatase 99 LD Total 110 Total Protein 6.9 Albumin 3.9 Stool Occult Blood Negative 10/24/18 16:05 RBC 4.33 MCV 71.5 L D MCHC 30.3 L RDW 17.2 H D MPV 7.3 L Neutrophils % 53.9 D Lymphocytes % 36.4 D Monocytes % 7.5 Eosinophils % 1.0 Basophils % 1.2 D - RADIOLOGY Radiology Studies Ordered: Category Date Time Status CHEST PA & LAT [RAD] Stat Radiology 10/24/18 15:54 Completed Medical Decision Making - Medical Decision Making 10/24/18 17:24 See HPI for details. Prior notes reviewed, including admissions, discharges and consultations. Vital signs reviewed, wnl. laboratory results and imaging reviewed, basic labs and lytes wnl, notable for new anemia, ancillary test sent for anemia workup; coags normal. screening guaiac neg CXR_no acute chest pathology EKG normal sinus rhythm at 66 bpm, no interval abnormalities, narrow QRS, ST and T wave segments and morphology normal. ED course - declined admission obs for anemia workup by hospitalist service, had spoken with Dr Martines - called to CARLA Weber regarding patient, normal H/H last year for routine checkup. amenable to outpatient workup, referral back to GI Dr Danielson for possible EGD, with recently unremarkable colonoscopy on routine bassis no bleeding here. pt is well appearing advised iron supplements, monitoring for bleeding, dizziness, sob, pallor or skin changes or AP also instructed to f/u GI for possible EGD with unremarkable colonoscopy within the year. Pt to be discharged in stable condition. family made aware of impression and plan, return precautions discussed (including but not limited to worsening pain or symptoms), fevers, or signs of infection, chest pain, respiratory distress, inability to tolerate oral intake, dehydration, syncope, or neurologic changes) . Follow up with PMD and/or specialist as recommended, follow up information provided, take medications as instructed for duration of time. continue with supportive care, avoid triggers and precipitants. All questions answered to patient's satisfaction and expressed understanding and comfort with this. Patient does not suffer from an acute life-threatening medical condition at this time and is safe for outpatient follow-up. 10/24/18 17:42 *DC/Admit/Observation/Transfer Diagnosis at time of Disposition: Anemia - Discharge Dispostion Disposition: HOME Condition at time of disposition: Stable Decision to Admit order: No - Referrals Referrals: Luis Danielson MD [Staff Physician] - Laury Weber [Non Staff, Medical] - - Patient Instructions Printed Discharge Instructions: Anemia: How Food and Vitamins Can Help, Anemia Additional Instructions: 1) Please follow-up with your primary care doctor in the next 1-2 days. Please call tomorrow for for any urgent issues. you are to see Dr [facility]son [facility] for workup of your anemia your blood test and stool test did not reveal any bleeding, it is unclear the etiology of your anemia at this time and warrants further testing. 2) You were given a copy of the tests performed today. Please bring the results with you and review them with your primary care doctor. Your laboratory / imaging results were normal aside from the anemia 3) If you have any worsening of symptoms or any other concerns please return to the ED immediately. Return if worsening symptoms including fevers, headache, vomiting, visual or hearing disturbances, bleeding, abdominal pain, chest pain , shortness of breath, syncope, dehydration, inability to take things by mouth/ vomiting, altered mental status, or worsening concerning symptoms. 4) Please continue taking your home medications as directed. your medications on discharge include over the counter supplements with Iron . side effects may include upset stomach, abdominal pain, constipation, vomiting, or diarrhea. do not drink alcohol with your medications. Stay well hydrated and rest adequately. eat a variety of foods. If you cannot follow-up with your primary care doctor please return to the ED if any symptoms appear or progress as above. - Post Discharge Activity
[2018-10-24 17:40] LABS: RETICULOCYTES 1.02 % (0.5-1.5)
[2018-10-24 17:45] LABS: ANISOCYTOSIS 1+; OVALOCYTE 1+; TEAR DROP CELLS 1+
[2018-10-24 18:22] VITALS: BP 117/78; PULSE 78; TEMP 97.8
[2018-10-25 08:06] LABS: SERUM IRON SATURATION 3 % (15-55); TOTAL IRON BINDING CAPACITY 472 ug/dL (250-450); UIBC 458 ug/dL (111-343)
--- NOTE | 2018-10-25 13:23 | EKG ---
Test Reason : Blood Pressure : / mmHG Vent. Rate : 066 BPM Atrial Rate : 066 BPM P-R Int : 142 ms QRS Dur : 090 ms QT Int : 404 ms P-R-T Axes : 032 000 018 degrees QTc Int : 423 ms SINUS RHYTHM WITH ATRIAL PREMATURE CONTRACTIONS INCOMPLETE RBBB Confirmed by TIM CABA MD ([id number]) on 10/25/2018 1:23:25 PM Referred By: DR YUNG Confirmed By:TIM CABA MD
== END 2018-10-24 18:40 | disposition home or self-care (01) ==
LOC: FER 15:40
DX: D64.9 Anemia, unspecified (principal); I34.1 Nonrheumatic mitral (valve) prolapse; N40.0 Benign prostatic hyperplasia without lower urinary tract symptoms; F79 Unspecified intellectual disabilities; K21.9 Gastro-esophageal reflux disease without esophagitis
CPT/HCPCS: 36415; 71046-TC-FY; 80053; 82272; 82728; 83010; 83540; 83550; 83615; 84443; 85025; 85044; 85610; 86850; 86900; 86901; 93005; 99283-25

== ENCOUNTER 2021-04-22 10:29 | Emergency (ER) | payer OTHER ==
[2021-04-22 10:56] VITALS: BP 122/84; PULSE 84; TEMP 97.9; BMI 3905.5
[2021-04-22 11:23] LABS: HEMATOCRIT 35.7 % (35.4-49); HEMOGLOBIN 10.9 GM/dl (11.7-16.9); MCH 22.8 pg (25.7-33.7); MCHC 30.6 g/dl (32.0-35.9); MEAN CELL VOLUME 74.6 fl (80-96); MEAN PLT VOLUME 7.5 fl (7.5-11.1); PLATELET COUNT 397 10^3/uL (134-434); RBC 4.79 M/mm3 (4.00-5.60); RDW 17.6 % (11.9-15.9); WHITE BLOOD COUNT 5.5 K/mm3 (4.0-10.8)
[2021-04-22 11:29] LABS: BILIRUBIN,TOTAL 0.8 mg/dl (0.2-1); CALCIUM 9.1 mg/dl (8.5-10); CREATININE 0.9 mg/dl (0.55-1.3); TOT PROT 7.4 g/dl (6.4-8.2)
[2021-04-22 11:35] LABS: ADD RBC MORPHOLOGY YES
[2021-04-22 12:00] LABS: ANISOCYTOSIS 2+; PLATELET ESTIMATE ADEQUATE
== END 2021-04-22 11:49 | disposition home or self-care (01) ==
LOC: FER 10:29
DX: D64.9 Anemia, unspecified (principal)
CPT/HCPCS: 36415; 80053; 85025; 99283-25

== ENCOUNTER 2021-11-02 14:53 | Emergency (ER) | payer OTHER ==
[2021-11-02] MEDS ORDERED: CEPHALEXIN MONOHYDRATE 500 MG CAPSULE (UD) PO ONE (15:07)
[2021-11-02] MEDS ORDERED: CEPHALEXIN MONOHYDRATE 500 MG CAPSULE (UD) ONE (15:13)
[2021-11-02 15:24] VITALS: BP 114/83; PULSE 86; TEMP 99; BMI 29.1
== END 2021-11-02 15:32 | disposition home or self-care (01) ==
LOC: FER 14:53
DX: L02.212 Cutaneous abscess of back [any part, except buttock and flank] (principal)
CPT/HCPCS: 99283-25

== ENCOUNTER 2022-04-11 04:19 | Day surgery (SDC) | payer OTHER ==
[2022-04-07 09:27] VITALS: BMI 34.8
[2022-04-11] MEDS ORDERED: MIDAZOLAM HCL 2 MG/2 ML SINGLE DOSE VIAL ONE (07:27)
[2022-04-11] MEDS ORDERED: PROPOFOL 20 ML ONE ×2 (07:27→07:53)
[2022-04-11] MEDS ORDERED: DEXAMETHASONE SOD PHOSPHATE 4 MG/1 ML VIAL ONE (07:30)
[2022-04-11] MEDS ORDERED: ONDANSETRON 4 MG/2 ML VIAL ONE ×2 (07:30→09:51)
[2022-04-11] MEDS ORDERED: SEVOFLURANE 250 ML BTL ONE (07:30)
[2022-04-11] MEDS ORDERED: GENTAMICIN SO4 80 MG/2 ML VIAL ONE (07:56)
[2022-04-11] MEDS ORDERED: oxyCODONE HCL 5 MG TABLET PO PRN (08:20)
[2022-04-11] MEDS ORDERED: ELECTROLYTE-148 SOLN 1,000 ML IV SCH (08:30)
[2022-04-11] MEDS ORDERED: ONDANSETRON 4 MG/2 ML VIAL IVPUSH PRN (08:39)
[2022-04-11] MEDS ORDERED: LACTATED RINGERS SOLUTION 1,000 ML IV SCH (08:45)
[2022-04-11 09:01] VITALS: RESP 18
[2022-04-11 10:43] VITALS: BP 120/79; PULSE 66; TEMP 97.6
[2022-04-17 18:07] LABS: CA HYDROGEN PHOS. 100 % (.); SIZE 6x5 mm (.)
== END 2022-04-11 10:55 | disposition home or self-care (01) ==
LOC: JASU-SURG 04:19
PROVIDERS: ATTEND Urology
PROC: 0T9780Z Drainage of Left Ureter with Drainage Device, Via Natural or Artificial Opening Endoscopic (ICD-10-PCS; principal; 2022-04-11 07:57)
PROC: 0T778DZ Dilation of Left Ureter with Intraluminal Device, Via Natural or Artificial Opening Endoscopic (ICD-10-PCS; 2022-04-11 07:57)
DX: N20.1 Calculus of ureter (principal); N13.5 Crossing vessel and stricture of ureter without hydronephrosis
CPT/HCPCS: 36415; 76000-TC-FY; 82360; 87086; 88300-TC; 94760; C2617

== ENCOUNTER 2022-06-25 09:47 | Emergency (ER) | payer OTHER ==
[2022-06-25 09:56] VITALS: BP 107/75; PULSE 99; RESP 16; TEMP 100.3; BMI 34.7
== END 2022-06-25 10:47 | disposition home or self-care (01) ==
LOC: FER 09:47
DX: U07.1 COVID-19 (principal); R50.9 Fever, unspecified; R05.1 Acute cough
CPT/HCPCS: 0241U-QW; 71046-TC-FY; 99284-25

== ENCOUNTER 2022-10-13 16:56 | Emergency (ER) | payer OTHER ==
[2022-10-13] MEDS ORDERED: IBUPROFEN 600 MG TABLET (FP) PO ONE ×2 (17:18→18:10)
[2022-10-13 18:31] VITALS: BP 120/87; PULSE 90; RESP 16; TEMP 99.1; BMI 34.7
== END 2022-10-13 20:50 | disposition home or self-care (01) ==
LOC: FER 16:56
DX: R26.89 Other abnormalities of gait and mobility (principal)
CPT/HCPCS: 70450-TC; 72170-TC-FY; 73502-TC-RT-FY; 73562-TC-RT-FY; 99284-25

== ENCOUNTER 2022-10-15 19:34 | Inpatient (IN) | payer OTHER ==
[2022-10-15 19:57] VITALS: BMI 30.7
[2022-10-15] MEDS ORDERED: KETOROLAC TROMETHAMINE 30 MG/1 ML VIAL IM ONE (21:12)
[2022-10-15] MEDS ORDERED: KETOROLAC TROMETHAMINE 30 MG/1 ML VIAL ONE (21:17)
[2022-10-15 21:35] LABS: BASO % 0.8 % (0-2.0); EOS % 0.9 % (0-4.5); HEMATOCRIT 39.7 % (35.4-49); HEMOGLOBIN 13.1 GM/dL (11.7-16.9); LYMPH % 28.2 % (8-40); MCH 27.9 pg (25.7-33.7); MCHC 33.1 g/dl (32.0-35.9); MEAN CELL VOLUME 84.5 fl (80-96); MEAN PLT VOLUME 6.9 fl (7.5-11.1); MONO % 7.7 % (3.8-10.2); NEUT % 62.4 % (42.8-82.8); PLATELET COUNT 291 10^3/uL (134-434); RDW 17.7 % (11.9-15.9); WHITE BLOOD COUNT 6.9 K/mm3 (4.0-10.0)
[2022-10-15 21:50] LABS: EPI CELLS 1 /uL (0-25.1); HYALINE CASTS 0 /uL (0-3.1); PH,URINE 5.5 (5.0-8.0); URINE APPEARANCE CLOUDY; URINE BACTERIA >9,000 /uL (0-1359); URINE BILIRUBIN NEGATIVE (NEGATIVE); URINE COLOR YELLOW; URINE GLUCOSE (UA) NEGATIVE (NEGATIVE); URINE KETONE NEGATIVE (NEGATIVE); URINE LEUK ESTERASE 2+ (NEGATIVE); URINE NITRITE POSITIVE (NEGATIVE); URINE PROTEIN 1+ (NEGATIVE); URINE RBC 1007 /uL (0-23.9); URINE UROBILINOGEN 0.2 mg/dL (0.2-1.0); URINE WBC 499 /uL (0-25.8)
[2022-10-15 21:54] LABS: ALBUMIN 3.2 g/dl (3.4-5.0); BLOOD UREA NITROGEN 26.9 mg/dL (7-18); CALCIUM 8.7 mg/dL (8.5-10.1)
[2022-10-15 21:57] LABS: CREATININE 0.9 mg/dL (0.55-1.3)
[2022-10-15 21:59] LABS: BILIRUBIN,TOTAL 0.5 mg/dL (0.2-1); TOT PROT 6.7 g/dl (6.4-8.2)
[2022-10-15] MEDS ORDERED: PIPERACILLIN/TAZOB 4.5 GM 4.5 GM in DEXTROSE 5%-WATER 100 ML IVPB ONE (22:32)
[2022-10-15] MEDS ORDERED: PIPERACILLIN/TAZOB 4.5 GM 4.5 GM/100 ML BAG IVPB ONE (22:57)
[2022-10-16] MEDS ORDERED: ACETAMINOPHEN 1000 MG/100 ML BAG IVPB PRN (02:31)
[2022-10-16] MEDS: DEXTROSE 5%-NORMAL SALINE 1,000 ML IV SCH ×2 (02:52→18:18)
[2022-10-16] MEDS: PIPERACILLIN/TAZOB 3.375 GM 3.375 GM in DEXTROSE 5%-WATER - 50 ML IVPB SCH ×2 (06:02→09:56)
[2022-10-16 06:36] LABS: BASO % 1.1 % (0-2.0); EOS % 1.8 % (0-4.5); HEMATOCRIT 37.8 % (35.4-49); HEMOGLOBIN 12.7 GM/dL (11.7-16.9); LYMPH % 30.7 % (8-40); MCH 28.3 pg (25.7-33.7); MCHC 33.5 g/dl (32.0-35.9); MEAN CELL VOLUME 84.4 fl (80-96); MEAN PLT VOLUME 7.8 fl (7.5-11.1); NEUT % 58.4 % (42.8-82.8); PLATELET COUNT 259 10^3/uL (134-434); RBC 4.48 M/mm3 (4.00-5.60); RDW 17.6 % (11.9-15.9); WHITE BLOOD COUNT 6.3 K/mm3 (4.0-10.0)
[2022-10-16 06:55] LABS: POTASSIUM 3.9 mmol/L (3.5-5.1)
[2022-10-16 06:56] LABS: CALCIUM 8.5 mg/dL (8.5-10.1)
[2022-10-16 06:57] LABS: BLOOD UREA NITROGEN 27.4 mg/dL (7-18)
[2022-10-16 07:00] LABS: CREATININE 0.9 mg/dL (0.55-1.3)
[2022-10-16] MEDS: PANTOPRAZOLE 40 MG TABLET PO SCH (09:56)
[2022-10-16] MEDS ORDERED: TAMSULOSIN HCL 0.4 MG CAP PO ONE (10:25)
[2022-10-16] MEDS ORDERED: IBUPROFEN 400 MG TABLET (FP) PO PRN (12:37)
[2022-10-16] MEDS: CEFTRIAXONE 1 GM in DEXTROSE 5%-WATER - 50 ML IVPB SCH (12:55)
[2022-10-16] MEDS: ENOXAPARIN NA (PORCINE) 40 MG/0.4 ML DISP.SYRIN SQ SCH (12:55)
[2022-10-17] MEDS ORDERED: ACETAMINOPHEN 325 MG TABLET (FP) PO PRN (02:29)
[2022-10-17] MEDS ORDERED: PIPERACILLIN/TAZOB 3.375 GM 3.375 GM in DEXTROSE 5%-WATER - 50 ML IVPB SCH (03:00)
[2022-10-17 07:26] LABS: BASO % 0.7 % (0-2.0); EOS % 2.8 % (0-4.5); HEMATOCRIT 36.6 % (35.4-49); HEMOGLOBIN 12.3 GM/dL (11.7-16.9); LYMPH % 29.9 % (8-40); MCH 28.5 pg (25.7-33.7); MCHC 33.8 g/dl (32.0-35.9); MEAN CELL VOLUME 84.3 fl (80-96); MEAN PLT VOLUME 7.5 fl (7.5-11.1); MONO % 7.7 % (3.8-10.2); NEUT % 58.9 % (42.8-82.8); PLATELET COUNT 275 10^3/uL (134-434); RBC 4.34 M/mm3 (4.00-5.60); RDW 17.1 % (11.9-15.9); WHITE BLOOD COUNT 5.2 K/mm3 (4.0-10.0)
[2022-10-17 07:45] LABS: POTASSIUM 3.7 mmol/L (3.5-5.1)
[2022-10-17 07:47] LABS: ALBUMIN 2.7 g/dl (3.4-5.0); BLOOD UREA NITROGEN 18.5 mg/dL (7-18); CALCIUM 8.1 mg/dL (8.5-10.1)
[2022-10-17 07:48] LABS: MAGNESIUM 1.9 mg/dL (1.8-2.4)
[2022-10-17 07:50] LABS: CREATININE 0.9 mg/dL (0.55-1.3); PHOSPHOROUS 3.2 mg/dL (2.5-4.9)
[2022-10-17 07:52] LABS: BILIRUBIN,TOTAL 0.5 mg/dL (0.2-1); TOT PROT 5.8 g/dl (6.4-8.2)
[2022-10-17] MEDS: DEXTROSE 5%-NORMAL SALINE 1,000 ML IV SCH (07:55)
[2022-10-17] MEDS: PANTOPRAZOLE 40 MG TABLET PO SCH (12:02)
[2022-10-17] MEDS: CEFTRIAXONE 1 GM in DEXTROSE 5%-WATER - 50 ML IVPB SCH (12:02)
[2022-10-17] MEDS: ENOXAPARIN NA (PORCINE) 40 MG/0.4 ML DISP.SYRIN SQ SCH (12:02)
[2022-10-18] MEDS: CEFTRIAXONE 1 GM in DEXTROSE 5%-WATER - 50 ML IVPB SCH (09:52)
[2022-10-18] MEDS: PANTOPRAZOLE 40 MG TABLET PO SCH (09:52)
[2022-10-18] MEDS: DEXTROSE 5%-NORMAL SALINE 1,000 ML IV SCH (09:57)
[2022-10-19 07:50] LABS: BASO % 0.5 % (0-2.0); EOS % 1.3 % (0-4.5); HEMATOCRIT 38.1 % (35.4-49); HEMOGLOBIN 12.9 GM/dL (11.7-16.9); LYMPH % 19.1 % (8-40); MCH 28.5 pg (25.7-33.7); MCHC 33.9 g/dl (32.0-35.9); MEAN CELL VOLUME 84.1 fl (80-96); MEAN PLT VOLUME 7.9 fl (7.5-11.1); NEUT % 72.1 % (42.8-82.8); PLATELET COUNT 281 10^3/uL (134-434); RBC 4.52 M/mm3 (4.00-5.60); RDW 17.1 % (11.9-15.9); WHITE BLOOD COUNT 7.3 K/mm3 (4.0-10.0)
[2022-10-19 07:57] LABS: INR 1.04 (0.83-1.09); PROTHROMBIN TIME (PATIENT) 12.1 SEC (9.7-13.0)
[2022-10-19 08:09] LABS: POTASSIUM 4.4 mmol/L (3.5-5.1)
[2022-10-19] MEDS: DEXTROSE 5%-NORMAL SALINE 1,000 ML IV SCH (08:13)
[2022-10-19 08:15] LABS: CALCIUM 8.4 mg/dL (8.5-10.1)
[2022-10-19 08:18] LABS: CREATININE 0.7 mg/dL (0.55-1.3)
[2022-10-19] MEDS: PANTOPRAZOLE 40 MG TABLET PO SCH (11:24)
[2022-10-19] MEDS: CEFTRIAXONE 1 GM in DEXTROSE 5%-WATER - 50 ML IVPB SCH (12:02)
[2022-10-20] MEDS: PANTOPRAZOLE 40 MG TABLET PO SCH ×2 (10:06→17:10)
[2022-10-20] MEDS: CEFTRIAXONE 1 GM in DEXTROSE 5%-WATER - 50 ML IVPB SCH (10:06)
[2022-10-20 12:37] VITALS: RESP 18
[2022-10-21 05:43] VITALS: BP 121/70; PULSE 79; TEMP 98.5
[2022-10-21] MEDS: PANTOPRAZOLE 40 MG TABLET PO SCH (07:33)
[2022-10-21] MEDS: CEFTRIAXONE 1 GM in DEXTROSE 5%-WATER - 50 ML IVPB SCH (09:29)
== END 2022-10-21 14:52 | disposition home or self-care (01) | DRG 690 ==
LOC: JER 19:34 → JERBED 10-16 02:27 → J8W 10-16 06:29 → OBSVTOIN 10-17 11:42
PROVIDERS: ADMIT Internal Medicine; ATTEND Internal Medicine
PROC: 0DB68ZX Excision of Stomach, Via Natural or Artificial Opening Endoscopic, Diagnostic (ICD-10-PCS; 2022-10-19)
PROC: 0DB58ZX Excision of Esophagus, Via Natural or Artificial Opening Endoscopic, Diagnostic (ICD-10-PCS; principal; 2022-10-19 12:45)
DX: N39.0 Urinary tract infection, site not specified (principal); N20.1 Calculus of ureter; K57.90 Diverticulosis of intestine, part unspecified, without perforation or abscess without bleeding; I34.1 Nonrheumatic mitral (valve) prolapse; Q99.2 Fragile X chromosome; R59.1 Generalized enlarged lymph nodes; K22.89 Other specified disease of esophagus; N40.1 Benign prostatic hyperplasia with lower urinary tract symptoms; R33.8 Other retention of urine; F79 Unspecified intellectual disabilities; R26.89 Other abnormalities of gait and mobility; M17.0 Bilateral primary osteoarthritis of knee; M16.0 Bilateral primary osteoarthritis of hip; K21.9 Gastro-esophageal reflux disease without esophagitis; K59.00 Constipation, unspecified; K44.9 Diaphragmatic hernia without obstruction or gangrene; K21.00 Gastro-esophageal reflux disease with esophagitis, without bleeding
CPT/HCPCS: 36415; 70450-TC; 72170-TC-FY; 73502-TC-RT-FY; 73562-TC-RT-FY; 74176-TC; 80048; 80053; 81003; 83735; 84100; 85025; 85610; 86850; 86900; 86901; 87086; 87186; 88305-TC; 93005; 93010; 97116-GP; 97161-GP; 99283-25; 99284-25; C9803-CS; G0378; U0003; U0005

== ENCOUNTER 2023-02-19 05:21 | Day surgery (SDC) | payer OTHER ==
[2023-02-16 08:20] VITALS: BMI 28.1
[2023-02-19 11:15] VITALS: BP 118/55; PULSE 76; RESP 16; TEMP 98.2
== END 2023-02-19 11:11 | disposition home or self-care (01) ==
LOC: JASU-ENDO 05:21
PROVIDERS: ATTEND Internal Medicine Gastroenterology
PROC: 0DB68ZX Excision of Stomach, Via Natural or Artificial Opening Endoscopic, Diagnostic (ICD-10-PCS; 2023-02-19)
PROC: 0DB48ZX Excision of Esophagogastric Junction, Via Natural or Artificial Opening Endoscopic, Diagnostic (ICD-10-PCS; principal; 2023-02-19 10:30)
DX: K21.00 Gastro-esophageal reflux disease with esophagitis, without bleeding (principal); K44.9 Diaphragmatic hernia without obstruction or gangrene; K31.7 Polyp of stomach and duodenum
CPT/HCPCS: 88305-TC; 88342-TC

== ENCOUNTER 2023-07-07 17:05 | Inpatient (IN) | payer OTHER ==
[2023-07-07 17:57] VITALS: BMI 27.9
[2023-07-07 18:07] LABS: HEMATOCRIT 44.8 % (35.4-49); HEMOGLOBIN 14.6 G/dL (11.7-16.9); MCH 29.1 pg (25.7-33.7); MCHC 32.5 g/dl (32.0-35.9); MEAN CELL VOLUME 89.6 fl (80-96); MEAN PLT VOLUME 7.9 fl (7.5-11.1); PLATELET COUNT 243.2 10^3/uL (134-434); RDW 17.8 % (11.9-15.9); WHITE BLOOD COUNT 13.7 10^3/uL (4.0-10.8)
[2023-07-07 18:17] LABS: EPITHELIAL CELLS 0-5 /hpf
[2023-07-07 18:18] LABS: ALBUMIN 3.8 g/dl (3.4-5.0); BILIRUBIN,TOTAL 0.7 mg/dl (0.2-1); CREATININE 5.4 mg/dl (0.6-1.3); POTASSIUM 4.2 mmol/L (3.5-5.1); TOT PROT 6.6 g/dl (6.4-8.2)
[2023-07-07] MEDS ORDERED: cefTRIAXone SODIUM 1 GM VIAL ONE (18:34)
[2023-07-07] MEDS: SODIUM CHLORIDE 0.9% 500 ML INFUS.BAG IV ONE (19:00)
[2023-07-07] MEDS: CEFTRIAXONE 1,000 MG in DEXTROSE 5%-WATER - 50 ML IVPB ONE (19:10)
[2023-07-07] MEDS ORDERED: ACETAMINOPHEN 325 MG TABLET (FP) PO PRN (19:33)
[2023-07-07] MEDS: SODIUM CHLORIDE 0.45% 1,000 ML IV SCH (20:37)
[2023-07-08] MEDS: CEFTRIAXONE 1 GM in DEXTROSE 5%-WATER - 50 ML IVPB SCH (09:31)
[2023-07-08] MEDS: PANTOPRAZOLE 40 MG TABLET PO SCH (09:32)
[2023-07-08 09:58] LABS: CALCIUM 8.1 mg/dl (8.5-10.1); CREATININE 2.4 mg/dl (0.6-1.3); PHOSPHOROUS 3.2 (2.5-4.9); POTASSIUM 3.6 mmol/L (3.5-5.1)
[2023-07-08] MEDS: SODIUM CHLORIDE 1,000 ML IV SCH ×2 (10:39→11:01)
[2023-07-08 11:11] LABS: BASO % 0.7 % (0-2.0); EOS % 1.9 % (0-4.5); HEMATOCRIT 36.9 % (35.4-49); HEMOGLOBIN 12.1 GM/dL (11.7-16.9); LYMPH % 34.8 % (8-40); MCH 28.9 pg (25.7-33.7); MCHC 32.7 g/dl (32.0-35.9); MEAN CELL VOLUME 88.5 fl (80-96); MEAN PLT VOLUME 8.2 fl (7.5-11.1); MONO % 7.4 % (3.8-10.2); NEUT % 55.2 % (42.8-82.8); PLATELET COUNT 218 10^3/uL (134-434); RBC 4.17 M/mm3 (4.00-5.60); RDW 17.3 % (11.9-15.9)
[2023-07-08] MEDS: HEPARIN NA (PORCINE) 5,000 UNITS/ML 1ML VIAL SQ SCH (21:01)
[2023-07-09 08:51] LABS: ALBUMIN 3.2 g/dl (3.4-5.0); BILIRUBIN,TOTAL 0.5 mg/dl (0.2-1); CALCIUM 8.6 mg/dl (8.5-10.1); CREATININE 1.2 mg/dl (0.6-1.3); POTASSIUM 3.6 mmol/L (3.5-5.1); TOT PROT 5.6 g/dl (6.4-8.2)
[2023-07-09 10:23] LABS: BASO % 2.8 % (0-2.0); EOS % 6.1 % (0-4.5); HEMATOCRIT 37.3 % (35.4-49); HEMOGLOBIN 12.5 GM/dL (11.7-16.9); LYMPH % 29.6 % (8-40); MCH 29.4 pg (25.7-33.7); MCHC 33.6 g/dl (32.0-35.9); MEAN CELL VOLUME 87.6 fl (80-96); MEAN PLT VOLUME 8.4 fl (7.5-11.1); MONO % 8.3 % (3.8-10.2); NEUT % 53.2 % (42.8-82.8); PLATELET COUNT 283 10^3/uL (134-434); RBC 4.25 M/mm3 (4.00-5.60); RDW 17.2 % (11.9-15.9); WHITE BLOOD COUNT 6.7 K/mm3 (4.0-10.0)
[2023-07-09 21:59] VITALS: RESP 18
[2023-07-10 06:57] VITALS: PULSE 66
[2023-07-10 08:11] LABS: ALBUMIN 3.2 g/dl (3.4-5.0); BILIRUBIN,TOTAL 0.5 mg/dl (0.2-1); CALCIUM 8.7 mg/dl (8.5-10.1); CREATININE 0.9 mg/dl (0.6-1.3); POTASSIUM 3.6 mmol/L (3.5-5.1); TOT PROT 5.7 g/dl (6.4-8.2)
[2023-07-10] MEDS: PANTOPRAZOLE 40 MG TABLET PO SCH (09:35)
[2023-07-10 10:03] LABS: EOS % 6.8 % (0-4.5); HEMATOCRIT 38.1 % (35.4-49); LYMPH % 30.9 % (8-40); MCH 29.8 pg (25.7-33.7); MCHC 34.1 g/dl (32.0-35.9); MEAN CELL VOLUME 87.5 fl (80-96); MEAN PLT VOLUME 8.1 fl (7.5-11.1); NEUT % 53.3 % (42.8-82.8); PLATELET COUNT 303 10^3/uL (134-434); RBC 4.35 M/mm3 (4.00-5.60); RDW 16.6 % (11.9-15.9); WHITE BLOOD COUNT 6.2 K/mm3 (4.0-10.0)
[2023-07-10 12:21] VITALS: BP 118/78; TEMP 97.4
== END 2023-07-10 13:07 | disposition home or self-care (01) | DRG 699 ==
LOC: FER 17:05 → UNDOADMIN 19:48 → FM/S 19:48
PROVIDERS: ADMIT Internal Medicine; ATTEND Internal Medicine
PROC: 0T9B70Z Drainage of Bladder with Drainage Device, Via Natural or Artificial Opening (ICD-10-PCS; principal; 2023-07-07)
DX: N99.89 Other postprocedural complications and disorders of genitourinary system (principal); N17.9 Acute kidney failure, unspecified; N39.0 Urinary tract infection, site not specified; N40.1 Benign prostatic hyperplasia with lower urinary tract symptoms; K21.9 Gastro-esophageal reflux disease without esophagitis; R54 Age-related physical debility; I34.0 Nonrheumatic mitral (valve) insufficiency; R33.8 Other retention of urine; K59.00 Constipation, unspecified; K44.9 Diaphragmatic hernia without obstruction or gangrene; Q99.2 Fragile X chromosome; F79 Unspecified intellectual disabilities; B96.20 Unspecified Escherichia coli [E. coli] as the cause of diseases classified elsewhere; K57.90 Diverticulosis of intestine, part unspecified, without perforation or abscess without bleeding
CPT/HCPCS: 36415; 80048; 80053; 81003; 81015; 83735; 84100; 85025; 85027; 85730; 87086; 87186; 93005; 99285-25; J1644

== ENCOUNTER 2023-08-20 20:12 | Emergency (ER) | payer OTHER ==
[2023-08-20 21:19] VITALS: BP 120/86; PULSE 80; RESP 18; TEMP 98.6; BMI 27.9
== END 2023-08-20 21:30 | disposition home or self-care (01) ==
LOC: FER 20:12
DX: T83.9XXA Unspecified complication of genitourinary prosthetic device, implant and graft, initial encounter (principal)
CPT/HCPCS: 99283-25

== ENCOUNTER 2023-08-22 12:33 | Emergency (ER) | payer OTHER ==
[2023-08-22 12:58] VITALS: BP 136/93; PULSE 100; RESP 16; TEMP 97.8; BMI 27.9
[2023-08-22 13:36] LABS: EPITHELIAL CELLS 0-5 /hpf
[2023-08-22 14:01] LABS: ALBUMIN 4.1 g/dl (3.4-5.0); BILIRUBIN,TOTAL 0.8 mg/dl (0.2-1); CALCIUM 9.3 mg/dl (8.5-10.1); CREATININE 0.8 mg/dl (0.6-1.3); POTASSIUM 3.9 mmol/L (3.5-5.1); TOT PROT 6.5 g/dl (6.4-8.2)
[2023-08-22] MEDS ORDERED: CIPROFLOXACIN 250 MG TABLET (RESTRICTED TO ID) PO ONE (14:44)
[2023-08-22] MEDS: CIPROFLOXACIN 500 MG TABLET (RESTRICTED TO ID) PO ONE (14:46)
[2023-08-22 15:17] LABS: HEMATOCRIT 42.3 % (35.4-49); HEMOGLOBIN 13.9 G/dL (11.7-16.9); MCH 29.8 pg (25.7-33.7); MCHC 32.8 g/dl (32.0-35.9); MEAN CELL VOLUME 90.8 fl (80-96); MEAN PLT VOLUME 8.1 fl (7.5-11.1); PLATELET COUNT 251.5 10^3/uL (134-434); RBC 4.66 10^6/uL (4.00-5.60); RDW 16.4 % (11.9-15.9); WHITE BLOOD COUNT 7.9 10^3/uL (4.0-10.8)
[2023-08-22 16:10] LABS: PLATELET ESTIMATE ADEQUATE
== END 2023-08-22 14:51 | disposition home or self-care (01) ==
LOC: SUPCPDRO 12:33 → FER 12:33
PROC: 0T9B70Z Drainage of Bladder with Drainage Device, Via Natural or Artificial Opening (ICD-10-PCS; principal; 2023-08-22)
DX: T83.091A Other mechanical complication of indwelling urethral catheter, initial encounter (principal); R31.9 Hematuria, unspecified; N39.0 Urinary tract infection, site not specified
CPT/HCPCS: 36415; 80053; 81003; 81015; 85027; 87086; 87186; 99284-25

== ENCOUNTER 2023-08-25 21:36 | Emergency (ER) | payer OTHER ==
[2023-08-25 22:00] VITALS: RESP 16; BMI 27.9
[2023-08-25 22:08] VITALS: BP 129/97; PULSE 102; TEMP 98.1
== END 2023-08-25 23:19 | disposition home or self-care (01) ==
LOC: FER 21:36
PROC: 0T9B70Z Drainage of Bladder with Drainage Device, Via Natural or Artificial Opening (ICD-10-PCS; principal; 2023-08-25)
DX: T83.511A Infection and inflammatory reaction due to indwelling urethral catheter, initial encounter (principal); R31.9 Hematuria, unspecified
CPT/HCPCS: 99283-25

== ENCOUNTER 2023-11-18 08:37 | Emergency (ER) | payer OTHER ==
[2023-11-18 08:48] VITALS: BP 112/79; PULSE 83; RESP 18; TEMP 97.4; BMI 25.1
== END 2023-11-18 11:24 | disposition home or self-care (01) ==
LOC: FER 08:37
DX: T83.091A Other mechanical complication of indwelling urethral catheter, initial encounter (principal); R10.30 Lower abdominal pain, unspecified
CPT/HCPCS: 99283-25